=== PATIENT | female | born 1995 | race Caucasian/White ===

== ENCOUNTER 2018-11-05 08:35 | Inpatient (IN) | payer OTHER ==
[2018-11-05 09:05] VITALS: BMI 24.5
--- NOTE | 2018-11-05 10:06 | HP ---
CIWA Score - Admission Criteria [facility] Guidelines: Admission for Medically Managed Detox: Requires at least one of the followin. CIWA greater than 12 2. Seizures within the past 24 hours 3. Delirium tremens within the past 24 hours 4. Hallucinations within the past 24 hours 5. Acute intervention needed for co occurring medical disorder 6. Acute intervention needed for co occurring psychiatric disorder 7. Severe withdrawal that cannot be handled at a lower level of care (continued vomiting, continued diarrhea, abnormal vital signs) requiring intravenous medication and/or fluids 8. Admission ROS S - HPI Chief Complaint: i am here for rehab from xanax,marijuana,fentonyl,mmtp Allergies/Adverse Reactions: Allergies Allergy/AdvReac Type Severity Reaction Status Date / Time No Known Allergies Allergy Verified 11/05/18 08:56 History of Present Illness: this 23 years old female with xanax,marijuana,fentonyl abused,mmtp 90 mgs/day, last medicated today denied seizure,denied syncope hepatitis c,no treatment nicotine dependence 1/2 pack/day,would like to have nicotine patch longest sobriety 1 and half year plan for [facility] treatment - Ebola screening Have you traveled outside of the country in the last 21 days: No (N) Have you had contact with anyone from an Ebola affected area: No Do you have a fever: No - Review of Systems Constitutional: No Symptoms Reported EENT: reports: No Symptoms Reported Respiratory: reports: No Symptoms reported, Other (bronchitis) Cardiac: reports: No Symptoms Reported GI: reports: No Symptoms Reported : reports: No Symptoms Reported Musculoskeletal: reports: No Symptoms Reported Integumentary: reports: No Symptoms Reported Neuro: reports: No Symptoms reported Endocrine: reports: No Symptoms Reported Hematology: reports: No Symptoms Reported Psychiatric: reports: No Sypmtoms Reported, Judgement Intact, Mood/Affect Appropiate, Orientated x3 Other Systems: Reviewed and Negative Patient History - Patient Medical History Hx Anemia: No Hx Asthma: Yes (on albuterol) Hx Chronic Obstructive Pulmonary Disease (COPD): No Hx Cancer: No Hx Cardiac Disorders: No Hx Congestive Heart Failure: No Hx Hypertension: No Hx Hypercholesterolemia: No Hx Pacemaker: No HX Cerebrovascular Accident: No Hx Seizures: No Hx Dementia: No Hx Diabetes: No Hx Gastrointestinal Disorders: No Hx Liver Disease: Yes (hepatitis c,no tretment) Hx Genitourinary Disorders: No Hx Sexually Transmitted Disorders: No Hx Renal Disease (ESRD): No Hx Thyroid Disease: No Hx Human Immunodeficiency Virus (HIV): No (2018 negative) Hx Hepatitis C: Yes (no treatment) Hx Depression: No Hx Suicide Attempt: No Hx Bipolar Disorder: No Hx Schizophrenia: No Other Medical History: no suicidal,no homicidal - Patient Surgical History Past Surgical History: No - PPD History Previous Implant?: Yes Documented Results: Negative w/o proof Implanted On Prior R Admission?: Yes Date: 11/04/18 Results: 0 mm PPD to be Administered?: No - Reproductive History Patient is a Female of Child Bearing Age (11 -55 yrs old): Yes Last Menstrual Period: 10/01/18 Patient : No - Smoking Cessation Smoking history: Current every day smoker Have you smoked in the past 12 months: Yes Aproximately how many cigarettes per day: 10 Hx Chewing Tobacco Use: No Initiated information on smoking cessation: Yes 'Breaking Loose' booklet given: 11/05/18 - Substance & Tx. History Hx Alcohol Use: No Hx Substance Use: Yes Substance Use Type: Heroin, Tranquilizers Hx Substance Use Treatment: Yes (day top in 2017) - Substances abused Alprazolam (Xanax) Substance route: Oral Frequency: 1-3 times last 30 days Amount used: (2) 2mg bars Age of first use: 21 Date of last use: 11/02/18 Heroin Substance route: Inhalation Frequency: Daily Amount used: 3-5 bags Age of first use: 14 Date of last use: 11/04/18 Other Other (specify): fentanyl Substance route: Inhalation Frequency: Daily Amount used: 3-10 bags Age of first use: 22 Date of last use: 11/04/18 Marijuana/Hashish Substance route: Smoking Frequency: Daily Amount used: 5$ Age of first use: 14 Date of last use: 11/04/18 Family Disease History - Family Disease History Family Disease History: Other: Brother (alcohol,dsa), Sister (dsa) Admission Physical Exam [facility] - Vital Signs Vital Signs: Vital Signs - 24 hr 11/05/18 08:56 Temperature 97.5 F L Pulse Rate 74 Respiratory 18 Rate Blood Pressure 130/75 - Physical General Appearance: Yes: Within Normal Limits HEENTM: Yes: Normal ENT Inspection, MIGDALIA, Pharynx Normal Respiratory: Yes: Lungs Clear, Normal Breath Sounds, No Respiratory Distress Neck: Yes: Within Normal Limits, Supple, Trachea in good position Breast: Yes: Breast Exam Deferred Cardiology: Yes: Within Normal Limits, Regular Rhythm, Regular Rate, S1, S2 Abdominal: Yes: Within Normal Limits, Normal Bowel Sounds, Non Tender, Flat, Soft Genitourinary: Yes: Within Normal Limits Back: Yes: Within Normal Limits Musculoskeletal: Yes: Within Normal Limits Extremities: Yes: Within Normal Limits 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, Fully Oriented, Alert, Motor Strength 5/5 Integumentary: Yes: Within Normal Limits Lymphatic: Yes: Within Normal Limits - Diagnostic (1) Heroin abuse Current Visit: Yes Status: Acute (2) Fentanyl use disorder, mild, abuse Current Visit: Yes Status: Acute (3) Benzodiazepine abuse Current Visit: Yes Status: Acute (4) Cannabis dependence Current Visit: Yes Status: Acute (5) Nicotine dependence Current Visit: Yes Status: Acute (6) Asthma Current Visit: Yes Status: Acute (7) Methadone maintenance therapy patient Current Visit: Yes Status: Acute Cleared for Admission [facility] - Detox or Rehab Claeared for Rehab Admission: Yes Inpatient Rehab Admission - Rehab Decision to Admit Inpatient rehab admission?: Yes - Initial Determination Are CD services needed?: Yes Free of communicable disease: Yes Not in need of hospitalization: Yes - Rehab Admission Criteria Previous failed treatment: Yes Poor recovery environment: Yes Comorbidities: Yes Lacks judgement: No Patient is meeting Inpatient Rehab admission criteria:: Yes
[2018-11-05] MEDS ORDERED: MENTHOL/PHENOL 1 EACH UD MM PRN (10:30)
[2018-11-05] MEDS ORDERED: LOPERAMIDE HCL 2 MG CAPSULE PO PRN (10:30)
[2018-11-05] MEDS ORDERED: MAG HYDROX/AL HYDROX/SIMETH 30 ML UNIT-DOSE CUP PO PRN (10:30)
[2018-11-05] MEDS ORDERED: guaiFENesin 200 MG/10 ML 10 ML UNIT-DOSE CUPS PO PRN (10:30)
[2018-11-05] MEDS ORDERED: P-EPHED 60MG/TRIPROLIDI 2.5MG TABLET PO PRN (10:30)
[2018-11-05] MEDS ORDERED: MAGNESIUM CITRATE 300 ML BOTTLE PO PRN (10:30)
[2018-11-05] MEDS ORDERED: MAGNESIUM HYDROX 2400MG/30ML ORAL SUSPENSION 30 ML CUP PO PRN (10:30)
[2018-11-05] MEDS: NICOTINE 21 MG/24 HOURS TOPICAL PATCH TD SCH (14:15)
[2018-11-05] MEDS: THIAMINE HCL 100 MG TABLET (FP) PO SCH (21:53)
[2018-11-05] MEDS: MELATONIN 5 MG TABLETS PO PRN (21:54)
[2018-11-05] MEDS: ALBUTEROL SO4 8 GM HFA INHALER IH PRN (21:56)
[2018-11-06 00:16] LABS: PH,URINE 6.5 (5.0-8.0); URINE APPEARANCE CLOUDY; URINE BILIRUBIN NEGATIVE (NEGATIVE); URINE COLOR YELLOW; URINE GLUCOSE (UA) NEGATIVE (NEGATIVE); URINE KETONE NEGATIVE (NEGATIVE); URINE LEUK ESTERASE NEGATIVE (NEGATIVE); URINE NITRITE NEGATIVE (NEGATIVE); URINE PROTEIN NEGATIVE (NEGATIVE); URINE UROBILINOGEN 0.2 mg/dL (0.2-1.0)
[2018-11-06] MEDS ORDERED: METHADONE HCL 10 MG TABLET PO SCH (06:00)
[2018-11-06] MEDS ORDERED: METHADONE HCL 10 MG TABLET ONE (07:01)
[2018-11-06] MEDS ORDERED: METHADONE HCL 40 MG DISPERSABLE TABLET ONE (07:01)
[2018-11-06] MEDS: METHADONE 80 MG, METHADONE 10 MG PO SCH (07:02)
[2018-11-06] MEDS: NICOTINE 21 MG/24 HOURS TOPICAL PATCH TD SCH (10:10)
[2018-11-06] MEDS: PRENATAL VITAMINS W/ FOLIC ACID TABLET (FP) PO SCH (10:10)
[2018-11-06] MEDS: IBUPROFEN 400 MG TABLET (FP) PO PRN (13:08)
[2018-11-06] MEDS: THIAMINE HCL 100 MG TABLET (FP) PO SCH (21:34)
[2018-11-06] MEDS: MELATONIN 5 MG TABLETS PO PRN (21:34)
[2018-11-06] MEDS: hydrOXYzine PAMOATE 25 MG CAPSULE (FP) PO PRN (21:34)
[2018-11-06] MEDS: ALBUTEROL SO4 8 GM HFA INHALER IH PRN (21:37)
[2018-11-07] MEDS ORDERED: METHADONE HCL 40 MG DISPERSABLE TABLET ONE (03:20)
[2018-11-07] MEDS ORDERED: METHADONE HCL 10 MG TABLET ONE (03:20)
[2018-11-07] MEDS: METHADONE 80 MG, METHADONE 10 MG PO SCH (06:59)
[2018-11-07] MEDS: NICOTINE 21 MG/24 HOURS TOPICAL PATCH TD SCH (10:30)
[2018-11-07] MEDS: PRENATAL VITAMINS W/ FOLIC ACID TABLET (FP) PO SCH (10:30)
--- NOTE | 2018-11-07 11:33 | EKG ---
Test Reason : Blood Pressure : / mmHG Vent. Rate : 056 BPM Atrial Rate : 056 BPM P-R Int : 146 ms QRS Dur : 090 ms QT Int : 504 ms P-R-T Axes : 063 060 054 degrees QTc Int : 486 ms SINUS BRADYCARDIA WITH SINUS ARRHYTHMIA PROLONGED QT ABNORMAL ECG NO PREVIOUS ECGS AVAILABLE Confirmed by NERI GASTELUM, AIDAN ([id number]) on 11/07/2018 11:33:24 AM Referred By: Confirmed By:AIDAN HE MD
[2018-11-07] MEDS: MELATONIN 5 MG TABLETS PO PRN (21:41)
[2018-11-07] MEDS: THIAMINE HCL 100 MG TABLET (FP) PO SCH (21:41)
[2018-11-08] MEDS ORDERED: METHADONE HCL 10 MG TABLET ONE (03:11)
[2018-11-08] MEDS ORDERED: METHADONE HCL 40 MG DISPERSABLE TABLET ONE (03:12)
[2018-11-08] MEDS: METHADONE 80 MG, METHADONE 10 MG PO SCH (06:40)
[2018-11-08] MEDS: PRENATAL VITAMINS W/ FOLIC ACID TABLET (FP) PO SCH (10:25)
[2018-11-08] MEDS: NICOTINE 21 MG/24 HOURS TOPICAL PATCH TD SCH (10:25)
[2018-11-08] MEDS: THIAMINE HCL 100 MG TABLET (FP) PO SCH (21:16)
[2018-11-08] MEDS: ALBUTEROL SO4 8 GM HFA INHALER IH PRN (21:16)
[2018-11-08] MEDS: MELATONIN 5 MG TABLETS PO PRN (21:16)
[2018-11-09] MEDS ORDERED: METHADONE HCL 10 MG TABLET ONE (03:22)
[2018-11-09] MEDS ORDERED: METHADONE HCL 40 MG DISPERSABLE TABLET ONE (03:22)
[2018-11-09] MEDS: METHADONE 80 MG, METHADONE 10 MG PO SCH (06:39)
--- NOTE | 2018-11-09 09:21 | PN ---
[facility] Progress Note Note: Pt is requesting for psych consult stating Hx of Depression and anxiety. reports Dx in half-way and was on medication but does not remember name. Oob ambulating with steady gait. Pt is alert o x 3. denies s/h/i. Vital Signs - 24 hr 11/09/18 11/09/18 11/09/18 00:30 03:30 07:15 Temperature 97.9 F Pulse Rate 63 Respiratory 16 16 16 Rate Blood Pressure 107/68 Laboratory Tests 11/05/18 11/05/18 00:00 09:30 Urine Color Yellow Urine Appearance Cloudy Urine pH 6.5 D Ur Specific [place] 1.024 Urine Protein Negative Urine Glucose (UA) Negative Urine Ketones Negative Urine Blood Negative Urine Nitrite Negative Urine Bilirubin Negative Urine Urobilinogen 0.2 Ur Leukocyte Esterase Negative POC Urine HCG, Qual Negative Psych consult ordered today for pt to follow up.
[2018-11-09] MEDS: PRENATAL VITAMINS W/ FOLIC ACID TABLET (FP) PO SCH (10:08)
[2018-11-09] MEDS: NICOTINE 21 MG/24 HOURS TOPICAL PATCH TD SCH (10:08)
[2018-11-09] MEDS: THIAMINE HCL 100 MG TABLET (FP) PO SCH (21:44)
[2018-11-09] MEDS: MINERAL OIL/PETROLAT/WATER TOPICAL CREAM 113 GM JAR TP SCH (21:44)
[2018-11-09] MEDS: MELATONIN 5 MG TABLETS PO PRN (21:45)
[2018-11-09] MEDS: TOLNAFTATE 1% CREAM 15 GM TUBE TP SCH (21:47)
[2018-11-10] MEDS ORDERED: METHADONE HCL 10 MG TABLET ONE (07:02)
[2018-11-10] MEDS ORDERED: METHADONE HCL 40 MG DISPERSABLE TABLET ONE (07:02)
[2018-11-10] MEDS: METHADONE 80 MG, METHADONE 10 MG PO SCH (07:03)
[2018-11-10] MEDS: IBUPROFEN 400 MG TABLET (FP) PO PRN ×3 (07:03→22:42)
[2018-11-10] MEDS: ALBUTEROL SO4 8 GM HFA INHALER IH PRN (10:10)
[2018-11-10] MEDS: PRENATAL VITAMINS W/ FOLIC ACID TABLET (FP) PO SCH (10:10)
[2018-11-10] MEDS: NICOTINE 21 MG/24 HOURS TOPICAL PATCH TD SCH (10:10)
[2018-11-10] MEDS: MINERAL OIL/PETROLAT/WATER TOPICAL CREAM 113 GM JAR TP SCH ×2 (10:11→21:06)
[2018-11-10] MEDS: TOLNAFTATE 1% CREAM 15 GM TUBE TP SCH ×2 (10:11→21:05)
--- NOTE | 2018-11-10 18:45 | CONSULT ---
[facility] Psychiatric Consult - Data Date of interview: 11/10/18 Admission source: [facility] Identifying data: First visit to [facility] and direct admission to [address] for this 23 y/o female seeking preservation of sobriety via rehabilitation. Patient is single, no dependents, domiciled, unemployed and currently supported by common-law spouse. Substance Abuse History: Confirmed by patient in this interview. Details in current [facility] report as follows : Smoking history: Current every day smoker. Have you smoked in the past 12 months: Yes. Aproximately how many cigarettes per day: 10. Hx Chewing Tobacco Use: No. Initiated information on smoking cessation: Yes. 'Breaking Loose' booklet given: 11/05/18. - Substance & Tx. History. Hx Alcohol Use: No. Hx Substance Use: Yes. Substance Use Type: Heroin, Tranquilizers. Hx Substance Use Treatment: Yes (day top in 2017). - Substances abused. Alprazolam (Xanax). Substance route: Oral. Frequency: 1 -3 times last 30 days. Amount used: (2) 2mg bars. Age of first use: 21. Date of last use: 11/02/18. Heroin. Substance route: Inhalation. Frequency: Daily. Amount used: 3-5 bags. Age of first use: 14. Date of last use: . Other. Other (specify): fentanyl. Substance route: Inhalation. Frequency: Daily. Amount used: 3-10 bags. Age of first use: 22. Date of last use: 11/04/18. Marijuana/Hashish. Substance route: Smoking. Frequency: Daily. Amount used: 5$. Age of first use: 14. Date of last use: 11/04/18 Medical History: Patient endorses good general health. Psychiatric History: Patient denies history of psychiatric hospitalizations, psychiatric OPD care or suicide attempts. Physical/Sexual Abuse/Trauma History: Patient denies. Additional Comment: No toxicology available for review. Mental Status Exam - Mental Status Exam Alert and Oriented to: Time, Place, Person Cognitive Function: Good Patient Appearance: Well Groomed (pierced left nostril, metallic ring inserted) Mood: Hopeful, Euthymic Affect: Appropriate, Normal Range Patient Behavior: Appropriate, Cooperative (friendly) Speech Pattern: Clear, Appropriate Voice Loudness: Normal Thought Process: Intact, Goal Oriented Thought Disorder: Not Present Hallucinations: Denies Suicidal Ideation: Denies Homicidal Ideation: Denies Insight/Judgement: Fair Sleep: Well Appetite: Good Gait/Station: Normal Psychiatric Findings - Problem List ([place] 1, 2,3) (1) Opioid dependence on agonist therapy Current Visit: Yes Status: Chronic Comment: On methadone maintenance (90 mg/ day) at [facility] program. (2) Benzodiazepine abuse Current Visit: Yes Status: Chronic (3) Cannabis dependence Current Visit: Yes Status: Chronic (4) Nicotine dependence Current Visit: Yes Status: Chronic - Initial Treatment Plan Initial Treatment Plan: Psychoeducation. Sleep hygiene. Relapse prevention ( MMTP in place). Support and encouragement. Counseling. Motivational sessions. Groups. AA/NA meetings. Observation.
[2018-11-10] MEDS: MELATONIN 5 MG TABLETS PO PRN (21:03)
[2018-11-10] MEDS: THIAMINE HCL 100 MG TABLET (FP) PO SCH (21:03)
[2018-11-10] MEDS ORDERED: PT OWN MED DRAWER 7, Y5N ONE (21:05)
[2018-11-11] MEDS ORDERED: METHADONE HCL 10 MG TABLET ONE (06:58)
[2018-11-11] MEDS ORDERED: METHADONE HCL 40 MG DISPERSABLE TABLET ONE (06:59)
[2018-11-11] MEDS: METHADONE 80 MG, METHADONE 10 MG PO SCH (06:59)
[2018-11-11] MEDS: IBUPROFEN 400 MG TABLET (FP) PO PRN ×2 (08:20→17:51)
[2018-11-11] MEDS: PRENATAL VITAMINS W/ FOLIC ACID TABLET (FP) PO SCH (10:10)
[2018-11-11] MEDS: NICOTINE 21 MG/24 HOURS TOPICAL PATCH TD SCH (10:10)
[2018-11-11] MEDS: MINERAL OIL/PETROLAT/WATER TOPICAL CREAM 113 GM JAR TP SCH ×2 (10:10→22:12)
[2018-11-11] MEDS: ACETAMINOPHEN 325 MG TABLET (FP) PO PRN (10:11)
[2018-11-11] MEDS: TOLNAFTATE 1% CREAM 15 GM TUBE TP SCH ×2 (10:12→22:12)
[2018-11-11] MEDS: MELATONIN 5 MG TABLETS PO PRN (22:11)
[2018-11-11] MEDS: THIAMINE HCL 100 MG TABLET (FP) PO SCH (22:11)
[2018-11-12] MEDS ORDERED: METHADONE HCL 10 MG TABLET ONE (06:51)
[2018-11-12] MEDS ORDERED: METHADONE HCL 40 MG DISPERSABLE TABLET ONE (06:51)
[2018-11-12] MEDS: IBUPROFEN 400 MG TABLET (FP) PO PRN ×2 (06:52→14:15)
[2018-11-12] MEDS: METHADONE 80 MG, METHADONE 10 MG PO SCH (06:53)
[2018-11-12] MEDS: PRENATAL VITAMINS W/ FOLIC ACID TABLET (FP) PO SCH (09:35)
[2018-11-12] MEDS: MINERAL OIL/PETROLAT/WATER TOPICAL CREAM 113 GM JAR TP SCH ×2 (09:35→21:32)
[2018-11-12] MEDS: NICOTINE 21 MG/24 HOURS TOPICAL PATCH TD SCH (09:35)
[2018-11-12] MEDS: TOLNAFTATE 1% CREAM 15 GM TUBE TP SCH ×2 (09:35→21:33)
[2018-11-12] MEDS: ACETAMINOPHEN 325 MG TABLET (FP) PO PRN (09:36)
[2018-11-12] MEDS: MELATONIN 5 MG TABLETS PO PRN (21:30)
[2018-11-12] MEDS: ALBUTEROL SO4 8 GM HFA INHALER IH PRN (21:30)
[2018-11-12] MEDS: THIAMINE HCL 100 MG TABLET (FP) PO SCH (21:30)
[2018-11-12] MEDS: hydrOXYzine PAMOATE 25 MG CAPSULE (FP) PO PRN (21:32)
[2018-11-13] MEDS ORDERED: METHADONE HCL 10 MG TABLET ONE (03:28)
[2018-11-13] MEDS ORDERED: METHADONE HCL 40 MG DISPERSABLE TABLET ONE (03:28)
[2018-11-13] MEDS: METHADONE 80 MG, METHADONE 10 MG PO SCH (06:34)
[2018-11-13] MEDS: NICOTINE 21 MG/24 HOURS TOPICAL PATCH TD SCH (10:02)
[2018-11-13] MEDS: MINERAL OIL/PETROLAT/WATER TOPICAL CREAM 113 GM JAR TP SCH ×2 (10:02→21:15)
[2018-11-13] MEDS: PRENATAL VITAMINS W/ FOLIC ACID TABLET (FP) PO SCH (10:03)
[2018-11-13] MEDS: TOLNAFTATE 1% CREAM 15 GM TUBE TP SCH ×2 (10:03→21:15)
[2018-11-13] MEDS: IBUPROFEN 400 MG TABLET (FP) PO PRN (10:04)
[2018-11-13] MEDS ORDERED: PT OWN MED DRAWER 7, Y5N ONE (19:08)
[2018-11-13] MEDS: MELATONIN 5 MG TABLETS PO PRN (21:13)
[2018-11-13] MEDS: THIAMINE HCL 100 MG TABLET (FP) PO SCH (21:13)
[2018-11-13] MEDS: hydrOXYzine PAMOATE 25 MG CAPSULE (FP) PO PRN (21:14)
[2018-11-14] MEDS ORDERED: METHADONE HCL 10 MG TABLET ONE (03:17)
[2018-11-14] MEDS ORDERED: METHADONE HCL 40 MG DISPERSABLE TABLET ONE (03:17)
[2018-11-14] MEDS: METHADONE 80 MG, METHADONE 10 MG PO SCH (06:31)
[2018-11-14] MEDS: PRENATAL VITAMINS W/ FOLIC ACID TABLET (FP) PO SCH (10:04)
[2018-11-14] MEDS: NICOTINE 21 MG/24 HOURS TOPICAL PATCH TD SCH (10:04)
[2018-11-14] MEDS: MINERAL OIL/PETROLAT/WATER TOPICAL CREAM 113 GM JAR TP SCH ×2 (10:04→21:52)
[2018-11-14] MEDS: TOLNAFTATE 1% CREAM 15 GM TUBE TP SCH ×2 (10:05→21:52)
[2018-11-14] MEDS: THIAMINE HCL 100 MG TABLET (FP) PO SCH (21:52)
[2018-11-15] MEDS ORDERED: METHADONE HCL 10 MG TABLET ONE (03:32)
[2018-11-15] MEDS ORDERED: METHADONE HCL 40 MG DISPERSABLE TABLET ONE (03:32)
[2018-11-15] MEDS: METHADONE 80 MG, METHADONE 10 MG PO SCH (06:51)
[2018-11-15] MEDS ORDERED: PT OWN MED DRAWER 7, Y5N ONE ×2 (08:20→19:37)
[2018-11-15] MEDS: MINERAL OIL/PETROLAT/WATER TOPICAL CREAM 113 GM JAR TP SCH ×2 (09:38→21:20)
[2018-11-15] MEDS: TOLNAFTATE 1% CREAM 15 GM TUBE TP SCH ×2 (09:39→21:20)
[2018-11-15] MEDS: PRENATAL VITAMINS W/ FOLIC ACID TABLET (FP) PO SCH (09:39)
[2018-11-15] MEDS: NICOTINE 21 MG/24 HOURS TOPICAL PATCH TD SCH (09:39)
[2018-11-15] MEDS: hydrOXYzine PAMOATE 25 MG CAPSULE (FP) PO PRN (21:19)
[2018-11-15] MEDS: THIAMINE HCL 100 MG TABLET (FP) PO SCH (21:19)
[2018-11-15] MEDS: ALBUTEROL SO4 8 GM HFA INHALER IH PRN (21:20)
[2018-11-16] MEDS ORDERED: METHADONE HCL 10 MG TABLET ONE (06:55)
[2018-11-16] MEDS ORDERED: METHADONE HCL 40 MG DISPERSABLE TABLET ONE (06:55)
[2018-11-16] MEDS: METHADONE 80 MG, METHADONE 10 MG PO SCH (06:55)
[2018-11-16] MEDS ORDERED: PT OWN MED DRAWER 7, Y5N ONE (08:49)
[2018-11-16] MEDS: MINERAL OIL/PETROLAT/WATER TOPICAL CREAM 113 GM JAR TP SCH ×2 (09:45→21:36)
[2018-11-16] MEDS: NICOTINE 21 MG/24 HOURS TOPICAL PATCH TD SCH (09:45)
[2018-11-16] MEDS: PRENATAL VITAMINS W/ FOLIC ACID TABLET (FP) PO SCH (09:45)
[2018-11-16] MEDS: TOLNAFTATE 1% CREAM 15 GM TUBE TP SCH ×2 (10:17→21:36)
[2018-11-16] MEDS: hydrOXYzine PAMOATE 25 MG CAPSULE (FP) PO PRN (21:35)
[2018-11-16] MEDS: THIAMINE HCL 100 MG TABLET (FP) PO SCH (21:35)
[2018-11-16] MEDS: MELATONIN 5 MG TABLETS PO PRN (21:35)
[2018-11-16] MEDS: ALBUTEROL SO4 8 GM HFA INHALER IH PRN (21:36)
[2018-11-17] MEDS ORDERED: METHADONE HCL 10 MG TABLET ONE (03:08)
[2018-11-17] MEDS ORDERED: METHADONE HCL 40 MG DISPERSABLE TABLET ONE (03:09)
[2018-11-17] MEDS: METHADONE 80 MG, METHADONE 10 MG PO SCH (06:58)
[2018-11-17] MEDS: PRENATAL VITAMINS W/ FOLIC ACID TABLET (FP) PO SCH (10:12)
[2018-11-17] MEDS: NICOTINE 21 MG/24 HOURS TOPICAL PATCH TD SCH (10:12)
[2018-11-17] MEDS: TOLNAFTATE 1% CREAM 15 GM TUBE TP SCH ×2 (10:13→21:45)
[2018-11-17] MEDS: MINERAL OIL/PETROLAT/WATER TOPICAL CREAM 113 GM JAR TP SCH ×2 (10:13→21:45)
[2018-11-17] MEDS: MELATONIN 5 MG TABLETS PO PRN (21:06)
[2018-11-17] MEDS: hydrOXYzine PAMOATE 25 MG CAPSULE (FP) PO PRN (21:06)
[2018-11-17] MEDS: THIAMINE HCL 100 MG TABLET (FP) PO SCH (21:06)
[2018-11-18] MEDS ORDERED: METHADONE HCL 40 MG DISPERSABLE TABLET ONE (03:23)
[2018-11-18] MEDS ORDERED: METHADONE HCL 10 MG TABLET ONE (03:23)
[2018-11-18] MEDS: METHADONE 80 MG, METHADONE 10 MG PO SCH (06:59)
[2018-11-18] MEDS ORDERED: PT OWN MED DRAWER 7, Y5N ONE ×2 (09:33→23:11)
[2018-11-18] MEDS: PRENATAL VITAMINS W/ FOLIC ACID TABLET (FP) PO SCH (10:07)
[2018-11-18] MEDS: TOLNAFTATE 1% CREAM 15 GM TUBE TP SCH ×2 (10:07→21:02)
[2018-11-18] MEDS: NICOTINE 21 MG/24 HOURS TOPICAL PATCH TD SCH (10:07)
[2018-11-18] MEDS: MINERAL OIL/PETROLAT/WATER TOPICAL CREAM 113 GM JAR TP SCH ×2 (10:08→21:02)
[2018-11-18] MEDS: MELATONIN 5 MG TABLETS PO PRN (21:02)
[2018-11-18] MEDS: THIAMINE HCL 100 MG TABLET (FP) PO SCH (21:02)
[2018-11-18] MEDS: hydrOXYzine PAMOATE 25 MG CAPSULE (FP) PO PRN (21:02)
[2018-11-19] MEDS ORDERED: METHADONE 80 MG, METHADONE 10 MG PO SCH (06:00)
[2018-11-19] MEDS ORDERED: METHADONE HCL 10 MG TABLET ONE (06:03)
[2018-11-19] MEDS ORDERED: METHADONE HCL 40 MG DISPERSABLE TABLET ONE (06:03)
[2018-11-19 06:57] VITALS: BP 104/73; PULSE 73; TEMP 97.7
--- NOTE | 2018-11-19 08:41 | DS ---
[facility] Rehab Discharge Summary - [facility] Rehab Discharge Summary Admission Date: 11/05/18 Discharge Date: 11/19/18 - History Present History: Cannabis dependence, MMTP, Opioid dependence Additional Comments: Pt is a 23 y/o female admitted to rehab for JOVON but on Methadone Maintenance progarm and completed today. Pertinent Past History: Asthma Hep C - Discharge Physical Exam Vital Signs: Vital Signs Temperature 97.7 F 11/19/18 06:53 Pulse Rate 73 11/19/18 06:53 Respiratory Rate 16 11/19/18 06:53 Blood Pressure 104/73 11/19/18 06:53 O2 Sat by Pulse Oximetry (%) Alert o x 3 nad oob ambulating with steady gait Cardiac:s1 s2, rrr Lungs:cta,pipe. Abdomen:soft,nt,nd Extremities/Skin:No edema,full ROM. no cyanosis; skin intact. Pertinent Admission Physical Exam Findings: Laboratory Tests 11/05/18 11/05/18 00:00 09:30 Urine Color Yellow Urine Appearance Cloudy Urine pH 6.5 D Ur Specific [place] 1.024 Urine Protein Negative Urine Glucose (UA) Negative Urine Ketones Negative Urine Blood Negative Urine Nitrite Negative Urine Bilirubin Negative Urine Urobilinogen 0.2 Ur Leukocyte Esterase Negative POC Urine HCG, Qual Negative Unremarkable - Treatment Discharge Condition: Discharge condition good Hospital Course: Rehabilitated safely and responded well - Medication Discharge Medications: Ambulatory Orders NK [No Known Home Medication] 11/05/18 - Medication-Assisted Treatment (MAT) Medication-Assisted Treatment (MAT): No - Discharge Instructions Diet, activity, other medical instructions: Diet:Regular Activity: oob ad caitie Other medical instructions:Follow up with [facility] for CD aftercare. Follow up with primary care at [address] [place] [address] as needed. - Diagnosis (1) Asthma Status: Chronic Qualifiers: Asthma severity: unspecified severity Asthma persistence: unspecified Asthma complication type: unspecified Qualified Code(s): J45.909 - Unspecified asthma, uncomplicated (2) Fentanyl use disorder, mild, abuse Status: Chronic (3) Methadone maintenance therapy patient Status: Chronic (4) Cannabis dependence Status: Chronic (5) Nicotine dependence Status: Chronic Qualifiers: Nicotine product type: cigarettes Substance use status: uncomplicated Qualified Code(s): F17.210 - Nicotine dependence, cigarettes, uncomplicated (6) Benzodiazepine abuse Status: Chronic - Follow-up Referral Minutes to complete discharge: 20 - AMA Did Patient Leave Against Medical Advice: No
[2018-11-19] MEDS: NICOTINE 21 MG/24 HOURS TOPICAL PATCH TD SCH (09:13)
[2018-11-19] MEDS: MINERAL OIL/PETROLAT/WATER TOPICAL CREAM 113 GM JAR TP SCH (09:13)
[2018-11-19] MEDS: PRENATAL VITAMINS W/ FOLIC ACID TABLET (FP) PO SCH (09:13)
== END 2018-11-19 09:35 | disposition home or self-care (01) | DRG 773 ==
LOC: YASAS 08:35 → Y3E 10:26
PROVIDERS: ADMIT Neuromusculoskeletal Medicine & OMM; ATTEND Neuromusculoskeletal Medicine & OMM
PROC: HZ2ZZZZ Detoxification Services for Substance Abuse Treatment (ICD-10-PCS; principal; 2018-11-05)
DX: F11.20 Opioid dependence, uncomplicated (principal); F13.10 Sedative, hypnotic or anxiolytic abuse, uncomplicated; F12.20 Cannabis dependence, uncomplicated; F17.210 Nicotine dependence, cigarettes, uncomplicated; F41.8 Other specified anxiety disorders; F32.9 Major depressive disorder, single episode, unspecified; J45.909 Unspecified asthma, uncomplicated; B18.2 Chronic viral hepatitis C
CPT/HCPCS: 81003; 81025; 93005; 93010

== ENCOUNTER 2020-01-03 08:49 | Inpatient (IN) | payer OTHER ==
--- NOTE | 2020-01-03 09:17 | BHS.RME ---
2018 N Coronavirus Screen - COVID-19 Screening Questions Dx of COVID-19 or had a positive test in the last 4 weeks?: No Contact with known/suspected COVID patient in last 14 days?: No Any of these symptoms or contact with someone who has?: None Traveled domestically/internationally in the last 14 days?: No Screen score: 0 Screen result: Further Evaluation Substance Use & Tx History - Substance Use History Alcohol Substance amount: 1 case beers 16 oz Frequency of use: Daily Substance route: Oral Date of Last Use: 01/03/20 (started age 19) Heroin Substance amount: 1 bundle Frequency of use: Daily Substance route: Inhalation (ex: sniffing or snorting) Date of Last Use: 01/02/20 (started age 16) Xanax Substance amount: 2mg - 1 tab Frequency of use: Daily Substance route: Oral Date of Last Use: 01/03/20 (started age 15) Nicotine Substance amount: 1 pack Frequency of use: Daily Substance route: Smoking Date of Last Use: 01/03/20 (started age 19) - Last Treatment Date of last treatment: 2018 Treatment type: Substance Use Disorder (JOVON) Where was last treatment: Rehab Physical/Psych/Mental Status - Behavior General Behavior: Increased activity (restlessness, agitation) Eye Contact: Normal - Cooperativeness Cooperativeness: Cooperative - Thinking Thought Processes: Tight, Logical, Goal Directed - Physical Health Problems Is patient presently having any pain?: No Does patient presently have any injuries (include location): No Does patient currently have a fever: No Is patient : No COWS - Scale Resting Pulse: 1= ME 81-100 Sweatin= Chills/Flushing Restless Observation: 1= Difficult to Sit Still Pupil Size: 1= Pupils >than Normal Bone or Joint Aches: 1= Mild Discomfort Runny Nose/ Eye Tearin= Nasal Congestion GI Upset > 30mins: 0= None Tremor Observation: 1= Tremor [place], Not Seen Yawning Observation: 1= 1-2x During Session Anxiety or Irritability: 1=Feels Anxious/Irritable Goose Flesh Skin: 3=Piloerection COWS Score: 12 CIWA Nausea/Vomitin Muscle Tremors: 2 Anxiety: 2 Agitation: 2 Paroxysmal Sweats: 1-Minimal Palms Moist Orientation: 1-Uncertain about Date Tacttile Disturbances: 0-None Auditory Disturbances: 0-None Visual Disturbances: 0-None Headache: 2-Mild CIWA-Ar Total Score: 13
[2020-01-03 09:31] VITALS: BMI 20.8
--- OUTSIDE RECORDS SUMMARY | 2020-01-03 09:54 | XMS ---
:1995 Author Organization [facility] Care Team Providers Name Role Phone DARYL IVORY Unavailable Unavailable Dhaval, Phillip Unavailable Dhaval, Phillip Unavailable Dhaval, Phillip Unavailable Dhaval, Phillip Unavailable Dhaval, Phillip Unavailable Dhaval, Phillip Unavailable Dhaval, Phillip Unavailable Dhaval, Phillip Unavailable Dhaval, Phillip Unavailable Dhaval, Phillip Unavailable Dhaval, Phillip Unavailable Dhaval, Phillip Unavailable Dhaval, Phillip Unavailable Dhaval, Phillip Unavailable Dhaval, Phillip Unavailable Dhaval, Phillip Unavailable Dhaval, Phillip Unavailable Dhaval, Phillip Unavailable POC, PHYSICIAN 2 Unavailable Unavailable KASSANDRA GASTELUM Unavailable Unavailable BALDEV GASTELUM Unavailable Unavailable LEHET DO, NELL Unavailable Unavailable Re-disclosure Warning The records that you are about to access may contain information from federally- assisted alcohol or drug abuse programs. If such information is present, then the following federally mandated warning applies: This information has been disclosed to you from records protected by federal confidentiality rules (42 CFR part 2). The federal rules prohibit you from making any further disclosure of this information unless further disclosure is expressly permitted by the written consent of the person to whom it pertains or as otherwise permitted by 42 CFR part 2. A general authorization for the release of medical or other information is NOT sufficient for this purpose. The Federal rules restrict any use of the information to criminally investigate or prosecute any alcohol or drug abuse patient.The records that you are about to access may contain highly sensitive health information, the redisclosure of which is protected by Article 27-F of the [facility] Public Health law. If you continue you may haveaccess to information: Regarding HIV / AIDS; Provided by facilities licensed or operated by the [facility] Office of Mental Health; or Provided by the [facility] Office for People With Developmental Disabilities. If such information is present, then the following [facility] mandated warning applies: This information has been disclosed to you from confidential records which are protected by state law. State law prohibits you from making any further disclosure of this information without the specific written consent of the person to whom it pertains, or as otherwise permitted by law. Any unauthorized further disclosure in violation of state law may result in a fine or alf sentence or both. A general authorization for the release of medical or other information is NOT sufficient authorization for further disclosure. Encounters Encounter Providers Location Date Indications Data Source(s ) Outpatient Attender: Phillip 06/13/2019 [facility] 10:22:14 AM [facility] EDT Patient admitted. Outpatient Attender: DARYL MENDOZA 06/11/2019 Overdose [facility] - DIANELYSAdmitter: DARYL 08:32:00 PM EDT ingestio amanda IVORYConsultant: - 06/11/2019 Janusz DE PAZ 10:58:00 PM EDT MDConsultant: PHYSICIAN POCConsultant: DARYL IVORY Overdose ingestion Patient discharged. [facility] 01/18/2019 eCW2 ( Planned 12:00:00 AM EST [facility]) Outpatient Attender: 2W-SONIA STN 12/05/2018 Request Detox [facility] - Jacinto ALVAREZT 08:22:00 PM EDT [place] DOAdmitter: - 12/05/2018 VAIBHAV LEHET 11:14:00 PM EDT DOConsultant : VAIBHAV LEHET DO Request Detox Patient discharged. Outpatient Attender: FLORIAN Murray-METH 11/21/2018 11:02:00 [id number] MANDO - Lynne TRISTANOSITO MDAdmitter: AM EDT - 11/26/2018 [place] FLORIAN CANNON 02:19:00 PM EDT MDConsultant: FLORIAN CANNON MD [id number] Patient discharged. Medications Medication Brand Start Product Dose Route [facility] Indications Reaction Description Data Name Date Form Instructions Instructions Source(s) Aubra Aubra 01/18/ active 1 tablet eCW2 0.1-20 0.1-20 2018 (Planned MG-MCG MG-MCG 12:00: Parenthoo d 00 AM of [facility]) Insurance Providers Payer name Policy type Policy ID Covered Covered alliance party's Policy P lee / Coverage alliance party ID relationship to Llanos Inf ormation type llanos BENJAMIN [employer] [id number] NON CAP SELF PAY/NO NA Self NA SLIDE [facility] [id number] Self [id number] BENJAMIN [id number] PATIENT IS [id number] MEDICAID INSURED BENJAMIN [id number] PATIENT IS [id number] 0000 MEDICAID INSURED BENJAMIN GOV 3 [id number] PATIENT IS [id number] OR 4 INSURED METHADONE [id number] SP [id number] MAINTENANCE PROGRAM FORMERLY [facility] [id number] SP [id number] NON CAP SELF PAY/NO Self Pay [id number] SLIDE SELF PAY/NO NA Self NA SLIDE Problems, Conditions, and Diagnoses Code Display Name Description Problem Type Effective Data Sour ce(s) Dates [id number] Body mass index Problem 01/18/2019 eCW2 (Korin nned (BMI) 22.0-22.9, 12:00:00 AM Parent [facility]od of adult [facility]) Emergency Room Emergency Room Diagnosis 06/13/2019 The In stitute Visit Follow Up Visit Follow Up 10:22:14 AM For [facility] EDT Health Y92.[address] Diagnosis 06/12/2019 [facility] - or not applicable OR NOT APPLICABLE 11:29:00 AM [place] EDT [place] X58.XXXA Exposure to other EXPOSURE TO OTHER Diagnosis 06/12/2019 [facility] - specified factors, SPECIFIED FACTORS, 11:29:00 AM [place] initial encounter INITIAL ENCOUNTER EDT [place] Y99.9 Unspecified UNSPECIFIED Diagnosis 06/12/2019 [facility] - external cause EXTERNAL CAUSE 11:29:00 AM [facility] status STATUS EDT [place] Y93.9 Activity, ACTIVITY, Diagnosis 06/12/2019 [facility] - unspecified UNSPECIFIED 11:29:00 AM [place] EDT [place] F17.210 Nicotine NICOTINE Diagnosis 06/12/2019 [facility] - dependence, DEPENDENCE, 11:29:00 AM [place] cigarettes, CIGARETTES, EDT [place] uncomplicated UNCOMPLICATED F11.10 Opioid abuse, OPIOID ABUSE, Diagnosis 06/12/2019 [facility] - uncom[facility] [place] [facility]1 Nonrheumatic NONRHEUMATIC Diagnosis 06/12/2019 [facility] - mitral (valve) MITRAL (VALVE) 11:29:00 AM [facility] prolapse PROLAPSE EDT [place] T40.2X1A Poisoning by other POISONING BY OTHER Diagnosis 0 [facility] - opioids, OPIOIDS, 11:29:00 AM [place] accidental ACCIDENTAL EDT [place] (unintentional), (UNINTENTIONAL), initial encounter INITIAL ENCOUNTER R40.4 Transient TRANSIENT Diagnosis 06/12/2019 [facility] - alteration of ALTERATION OF 11:29:00 AM [facility] awareness AWARENESS EDT [place] F11.23 Opioid dependence OPIOID DEPENDENCE Diagnosis 12/10/2018 [facility] - with withdrawal WITH WITHDRAWAL 02:39:00 PM [facility] EDT [place] F11.20 Opioid dependence, OPIOID DEPENDENCE, Diagnosis 9 [facility] - uncomplicated UNCOMPLICATED [facility] [place] Surgeries/Procedures Procedure Description Date Indications Data Source(s) CHLAMYDIA TRACHOMATIS 01/18/2019 eCW2 ( Planned 12:00:00 AM EST [facility] - [facility] [place]) TOBACCO USE CESSATION 01/18/2019 eCW2 ( Planned INTERMEDIATE 3-10 12:00:00 AM EST [facility]) Gonorrhea 01/18/2019 eCW2 (Planned 12:00:00 AM EST [facility] Toma santillan [place]) Results ID Date Data Source [id number] 06/16/2019 10:07:00 PM EDT [facility] These notes were digitally signed by Daryl Ivory DO on Sunday, June 16, 2019 at 22:06 MDSeen: 06/11/2019 8:33:00 PMFirstProviderTime: 06/11/2019 8:33:00 PMDiagnosis 1: OPIOID OVERDOSECondition on discharge: SERIOUSTX: TRIAGE NOTES:Pt dropped off at ED for potential overdose. On arrival pt wheele d intoED unresponsive with snoring respirations. Pt woke prior to VS beingtaken. Pt now awake, alert and cooperative. VS WNL. Pt reports usingheroin at approx 17 00 this evening.Allergies (Reaction): NONELatex/Rubber: NO, Allergy bracelet applied: NoCURRENT MEDICATIONS:None ReportedVITAL SIGNS:Temp: 36.6 C Oral, P ulse: 102 Resp: 10 Weight: 57.15Kg- Stated, BP: 134/87, Pulse ox: 100%Infectious Disease Risk ScreeningEbola Virus Disease (EVD)Symptoms - Known signs of Infection s: No FeverTravel History /Exposure: No TravelNo known or possible exposure---No Risk---NURSING SCHEDULER HISTORY:LMP: 05/12/2019 ([place]) EndHISTORY OF PRESENT ILLNESS: MARIPOSA ATWOOD is a 23 -year-old Femalewho was brought in by friends via private vehicle, who found t he patientto be unresponsive at home. Patient was transferred via wheel chair intothe ED as she was unconscious. Pupils were 2mm and sluggishly reactivebilatera lly. As we moved the patient from the wheel chair to the bed,she woke up and had no recollection of being transferred to the ED.Patient's initial HR was 6, but n ormalized upon becoming conscious.Patient endorses "sniffing dope today", and offers no physicalcomplaints.PMD: NoneREVIEW OF SYSTEMS: Other than the s ymptoms associated with the presentevents, the following is reported with regard to recent health:General: (-) fever. HENT: (-) congestion. Respiratory: (- ) cough.Cardiovascular: (-) chest pain. GI: (-) abdominal pain. : (-)urinary complaints. Musculoskeletal: (-) other aches or pains.Endocrine: (-) gen eralized weakness. Neurological: (-) localizedweakness.PAST MEDICAL HISTORY: (-) DM, (-) HTN, (-) asthma, (-) COPD, (+) heartdisease: mitral valve prolapse, (+) opioid abuseFAMILY HISTORY: (-) known inherited diseaseSOCIAL HISTORY: (+) smoking: daily, (-) EtOH, (+) opiatesMEDICATIONS: Verified by nurseangeliqued by me on this visit : NoneALLERGIES: Verified by nurse, reviewed by me on this visit : NKDALMP: 05/12/2019PHYSICAL EXAMINATION:GENERALIZED APPEARANCE: The patient was initially unresponsive with arespiration rate of 6, but is now awake, alert, and in no respiratorydistress.VITAL SIGNS: Per jeremiah orona's note, reviewed by me : Temp: 36.6 C Oral,Pulse: 102 Resp: 10 Weight: 57.15 Kg-Stated, BP: 134/87, Pulse ox:100%SKIN: Warm, dry; (-) cyanosis.HE AD: Normocephalic. Atraumatic.EYES: (-) conjunctival pallor.ENMT: Mucous membranes moist. Airway: (+) patent.LYMPHATIC/NECK: (-) tenderness, (-) stiffness, (-) lymphadenopathy.CHEST AND RESPIRATORY: (-) rales, (-) rhonchi, (-) wheezes; breathsounds equal bilaterally. Good air entry bilaterally. HEART AND CARDIOVASCULAR: (-) irregularity; (-) murmur, (-) gallop.ABDOMEN AND GI: Soft; (-) tenderness.MUSCULOSKELETAL/EXTREMITIES: (-) joint swelling, (-) deformity.NEURO: Alert, oriented, normal strength. Sensation grossly intact.Moving all extremities normally. Pupils 2mm bilater ally and sluggishlyreactive.PSYCH: (-) apparent hallucinations or delusions. Affect: normal. T he diagnostic results contained in this document reflect theinformation available to the physician at the time of the dionicio entencounter. Final results, when completed, will be found [facility]. DI AGNOSTICS: ==G ROOPA SANTIAGO *Date Back: 06/11/2019 8:41:00 PM Test Result Flag Unit Ref.Kristen =======GLUCOSE, POC 162 H mg/dL 70-105F COMPLETE BLOOD COUNTDIFF *Date Back: 0 8:52:00 PM Test Result Flag Unit Ref.RangeStatus =======WHITE BLOOD CELL CO 7.5 x10E3/uL 4.80-10.80FRED BLOOD CELL COUN 5.00 x10E6/uL 4.20- 5.40FHEMOGLOBIN 14.3 g/dL 12.0-16.0FHEMATOCRIT 42.9 % 37 .0-47.0FMCV 85.8 fL 81.0-99.0FMCH 28.7 pg 27.0-31.0FMCHC 33.4 g/dL 33.0-37.0FRDW 13.3 % 11.5-14.5FPLATELET COUNT 241 x1 0E3/uL 130-400FNEUTROPHIL PERCENT 43.4 % 40.0-74.0FLYMPHOCYTE PERCENT 46.5 % 19.0-48.0FMONOCYTE PERCE NT 6.1 % 3.4-9.0FEOSINOPHIL PERCENT 3.5 % 0.0-7.0FBASOPHIL PERCENT 0.5 % 0.0-1.5F SALICYLA TE *Date Back: 06/11/2019 9 :06:00 PM Test Result Flag Unit Ref.RangeStatus =======SALICYLATE, BLOOD <2.6 L ug/mL 6.0-50.0FSALICYLATE, BLOOD C THERAPEUTI C: <250.1 ug/mLSALICYLATE, BLOOD C TOXIC: >300.0 ug/mL ACETAMINOPH EN *Date Back: 06/11/2019 9:06 :00 PM Test Result Flag Unit Ref.RangeStatus =======ACETAMINOPHEN <15.0 ug/mL 10.0-25.0FACETAMINOPHEN COMME THERAPEUT IC: 10.0-25.0 ug/mLACETAMINOPHEN COMME TOXIC: 4 HRS AFTER INGESTION: >120 ug/mLACETAMINOPHEN COMME 12 HRS AFTER INGESTION: >50 ug/mL COMP METABOLIC PANEL (14) *Date Back: 06/11/2019 9:06 :00 PM Test Result Flag Unit Ref.RangeStatus =======GLUCOSE, SERUM 170 H mg/dL 70-105FBLOOD UREA NITROGEN 11 mg/dL 10- 20FCREATININE, SERUM 1.05 mg/dL 0.70-1.30FCALCIUM, SERUM 9.0 mg/dL 8.8-10.5FA LBUMIN 4.2 g/dL 3.5-5.2FBILIRUBIN TOTAL 0.5 mg/dL 0.3-1.0FTOTAL PROTEIN 6.8 g/dL 6.5- 8.0FASPARTATE AMINOTRAN 13 IU/L 10-30FALANINE AMINOTRANSF 9 L IU/L 10-36FSODIU M SERUM 140 mmol/L 136-145FPOTASSIUM SERUM 3.9 meq/L 3.5-5.1FCHLORIDE SERUM 101 mmol/L 98-805VYU7 24 mmol/L 23-29FALKALINE PHOSPHATAS 52 IU/L 32-104FANION GAP 15 H mmol/L 5-13FGlom Filt Rate, Est 74.5 mL/min 60-137FIf -Gabonese 85.9 mL/min 60- 137F (Lab EndFSB mg/dLPulse Ox: 100% on RA indicating adequate oxyge nation.EKG: NSR at 91 BPM, normal axis and intervals, no ischemic changes, asinterpreted by me.Glazier Supervisor: sinus rhythmPatient informed that the followin g send-out or delayed-result testingwas sent today, with results pending at time of disposition. They wereinformed that they will be contacted with any abnormal results foradditional follow-up, and that results will provided to their PMD onrecord, if applicable.Urine culture ordered, obtained, and sent to lab.EMERG ENCY DEPARTMENT COURSE AND TREATMENT: Patient placed in EmergencyDepartment observation status on 06/11/2019 at 2033 for treatment ofoverdose. Initial exam and a ssessment completed. Decision made toobtain prior medical records. Prior records requested and reviewed inEDIMs. Patient last seen in the ED on 12/05/2018 for op oid dependenceand withdrawal and was discharged.Narcan will not be administered as she has maintained her ownrespirations. End tidal CO2 monitor is ongoing.Orders written. Awaiting diagnostics.Patient re-evaluated multiple times during their evaluation.On first reassessment - Patient is asleep, but rousable to verbalstimuli . Lungs clear to ausculation, without increased work ofbreathing. Vital signs stable.Diagnostic results reviewed and discussed with patient who was given the opportunity to ask questions and verbalized understanding.On second reassessment - Patient continues to sleep comfortably, andremains rousable to verbal stimuli. L ungs clear to ausculation withoutlabored breathing. Vital signs stable.The observation discharge examination, patient's symptoms improved.Patient is awake and a lert. She is able to ambulate with a normal,steady gait. Vital signs remain stable. Based on the patient'sreassessment and response to treatment arrangements made for discharge.The patient remained under the direct care of an emergency physicianuntil 06/11/2019 at 2305.Patient's condition remained stable during Emergen cy Departmentevaluation.Repeat vitals: Temp:36.9 C Oral Pulse:97 Resp:18 BP:102/52 SO2:100on:Room Air .After the evaluation in the Emergency Department, my clinical impressionis << OPIOID OVERDOSE. >>PLAN AND FOLLOW-UP: Patient received written and verbal instructionsregarding this condition. F ollow up to be arranged by patient with PMD(referred to [facility]) in 2-3 days. Patient verbalized understanding ofinstructions to return to the ED immediately for wors ening symptoms orany other concerns. scribed for Daryl Ivory DO signed by Cady reid 06/11/201923:16. scribed for Daryl Ivory DO signed by Yanique Jimenez 06/11/2019 23: 13.The documentation recorded by the scribe accurately reflects the serviceI personally performed and the decisions made by me. Daryl Ivory, 06/16/2019 22:06 Dig itally signed by Daryl Ivory DO on Sunday, June 16, 2019 at 22:06 Name Value Range Interpretation Code Description Data Sangita rce(s) Supporting Document(s ) ID Date Data Source [id number] 06/11/2019 08:41:00 PM EDT [facility] Name Value Range Interpretation Code Description Data Supporting Source(s) Document(s ) GLUCOSE, 162 mg/dL 70-105 Above high normal [facility] - POC [facility] ID Date Data Source [id number] 06/11/2019 09:06:00 PM EDT [facility] Name Value Range Interpretation Description Data Sup porting Code Source(s) Document(s ) GLUCOSE, SERUM 170 70-105 Above high [facility] - mg/dL normal [facility] BLOOD UREA NITROGEN 11 10-20 [facility] - mg/dL [facility] CREATININE, SERUM 1.05 0.70-1. [facility] - mg/dL 30 [facility] CALCIUM, SERUM 9.0 8.8-10. [facility] - mg/dL 5 [facility] ALBUMIN 4.2 3.5-5.2 [facility] - g/dL [facility] BILIRUBIN TOTAL 0.5 0.3-1.0 [facility] - mg/dL [facility] TOTAL PROTEIN 6.8 6.5-8.0 [facility] - g/dL [facility] ASPARTATE 13 IU/L 10-30 [facility] - AMINOTRANSFERASE [facility] ALANINE 9 IU/L 10-36 Below low normal [facility] - AMINOTRANSFERASE [facility] SODIUM SERUM 140 136-145 [facility] - mmol/L [facility] POTASSIUM SERUM 3.9 3.5-5.1 [facility] - meq/L [facility] CHLORIDE SERUM 101 98-107 [facility] - mmol/L [facility] CO2 24 23-29 [facility] - mmol/L [facility] ALKALINE 52 IU/L 32-104 [facility] - PHOSPHATASE [facility] ANION GAP 15 5-13 Above high [facility] - mmol/L normal [facility] Glom Filt Rate, Est 74.5 60-137 [facility] - mL/min [facility] If -Gabonese 85.9 60-137 [facility] - mL/min [facility] ID Date Data Source [id number] 06/11/2019 09:06:00 PM EDT [facility] [place] Name Value Range Interpretation Description Data Sup porting Code Source(s) Document(s ) ACETAMINOPHEN <15.0 10.0-25. [facility] - ug/mL 0 [facility] THERAPEUTIC: 10.0-25.0 ug/mL TOXIC: 4 HRS AFTER INGESTION: >120 ug/mL 12 HRS AFTER INGESTION: >50 ug/mL ID Date Data Source [id number] 06/11/2019 09:06:00 PM EDT [facility] [place] Name Value Range Interpretation Description Data Sup porting Code Source(s) Document(s ) SALICYLAT <2.6 6.0-50.0 Below low normal [facility] - E, BLOOD ug/mL [facility] THERAPEUTIC: <250.1 ug/mL TOXIC: >3 00.0 ug/mL ID Date Data Source [id number] 06/11/2019 08:51:00 PM EDT [facility] Name Value Range Interpretation Description Data Sup porting Code Source(s) Document(s ) WHITE BLOOD 7.5 4.80-10. [facility] - CELL COUNT x10E3/uL 80 [facility] RED BLOOD CELL 5.00 4.20-5.4 [facility] - COUNT x10E6/uL 0 [facility] HEMOGLOBIN 14.3 12.0-16. [facility] - g/dL 0 [facility] HEMATOCRIT 42.9 % 37.0-47. [facility] - 0 [facility] MCV 85.8 fL 81.0-99. [facility] - 0 [facility] MCH 28.7 pg 27.0-31. [facility] - 0 [facility] MCHC 33.4 33.0-37. [facility] - g/dL 0 [facility] RDW 13.3 % 11.5-14. [facility] - 5 [facility] PLATELET COUNT 241 130-400 [facility] - x10E3/uL [facility] NEUTROPHIL 43.4 % 40.0-74. [facility] - PERCENT 0 [facility] LYMPHOCYTE 46.5 % 19.0-48. [facility] - PERCENT 0 [facility] MONOCYTE 6.1 % 3.4-9.0 [facility] - PERCENT [facility] EOSINOPHIL 3.5 % 0.0-7.0 [facility] - PERCENT [facility] BASOPHIL 0.5 % 0.0-1.5 [facility] - PERCENT [facility] ID Date Data Source [id number] 12/14/2018 01:27:36 PM EDT [facility] These notes were digitally signed by Vaibhav Felipe DO on November at 03:14 MDSeen: 12/05/2018 8:27:00 PMFirstProviderTime: 12/05/2018 8:27:00 PMDiagnosis 1: Opioid dependence with withdrawalCondition on discharge: STABLETX: TRIAGE NOTES:pt biba from home - pt was prescri bed 90mg methadone and started todetox from methadone 6 days ago. pt requesting to go to detox.Allergies (Reaction): NONELatex/Rubber: NO, Allergy bracelet a pplied: NoCURRENT MEDICATIONS:None ReportedVITAL SIGNS:Temp: 37.1 C Oral, Pulse: 94 Resp: 19 Weight: 70.31Kg-Actual, BP: 120/71, Pulse ox: 99 %Infectious Disease Risk ScreeningEbola Virus Disease (EVD)Symptoms - Known signs of Infections: No FeverTravel History /Exposure: No TravelNo known or possible exposure---No Risk---NURSING SCHEDULER HISTORY: ([place]) EndHISTORY OF PRESENT ILLNESS: MARIPOSA ATWOOD is a 23 -year -old Femalewho presents to the ED requesting detox. She states that she had beenusing methadone 90 mg and last used 6 days ago. She has been on 90 mg ofmethad one for a little over a year with no decrease in her dose. 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 She does endorse usingopioids while in her previo program. She [place]inic in [place], moved into a detox and rehab facility, and then hadan issue within the facility, and left. The case at the methadone clinicshe and her boyfriend were at was closed and she has been unable to beseen by anyone since. She endorses hot flashes, sweats, nausea ,headache, and rest legs on and off. She has been using Tramadol to gether through with her last dose yesterday. She denies vomiting or alcoholuse.PMD: None currentlyREVIEW OF SYSTEMS: Other than the symptoms associated with the presentevents, the following is reported with regard to recent health:General: ( -) fever. HENT: (-) congestion. Respiratory: (-) cough.Cardiovascular: (-) chest pain. GI: (-) abdominal pain. : (-)urinary complaints. Musculoske letal: (-) other aches or pains.Endocrine: (-) generalized weakness. Neurological: (-) localizedweakness. Psychiatric: (-) other emotional stress .PAST MEDICAL HISTORY: (-) DM, (-) HTN, (-) asthma, (-) COPD, (+) mitralvalve prolapseFAMILY HISTORY: (-) known inherited diseaseSOCIAL HISTORY: (+) sm oking: daily, (-) EtOH, (-) recreational drug useMEDICATIONS: Verified by nurse, reviewed by me on this visit NonereportedALLERGIES: Verified by nurse , reviewed by me on this visit NKDAPHYSICAL EXAMINATION:GENERALIZED APPEARANCE: Patient is alert and awake.VITAL SIGNS: Per nurse's note, reviewed by me Temp: 37.1 C Oral, Pulse:94 Resp: 19 Weight: 70.31 Kg-Actual, BP: 120/71, Pulse ox: 99%SKIN: Warm, dry; (-) cyanosis.HEAD: (-) scalp swelling or te nderness.EYES: (-) conjunctival pallor, (-) scleral icterus.ENMT: Mucous membranes moist.NECK: (-) tenderness, (-) stiffness, (-) lymphadenopathy.CHEST AND RESPIRATORY: (-) rales, (-) rhonchi, (-) wheezes; breathsounds equal bilaterally.HEART AND CARDIOVASCULAR: (-) irregularity; (-) murmur, (-) gallop.ABD OMEN AND GI: Soft; (-) tenderness; (-) palpable organomegaly.EXTREMITIES: (-) deformity, (-) edema.NEURO AND PSYCH: Mental status as above; (-) apparent lopez llucinations ordelusions. publication director: Pupils equal, round, reactive; (-) nystagmus, (-)facial asymmetry; tongue and uvula midline. Strength, DTRs symmetric. --The diagnostic results contained in this document reflect theinformation available to the physician at the time of the patientencounter. Final results, when completed, will be found in [facility] medical [facility]. DI AGNOSTICS:WHITE BLOOD CELL CO Pending G RENY GLUTAMYLTRANS Pending A LCOHOL BLOOD Pending G LUCOSE, SERUM Pending C OLOR Pending A MPHETAMINES Pending COMPLE TE BLOOD COUNTDIFF *Date Back: 2018 10:10:00 PM Test Result Flag Unit Ref.RangeStatus =======WHITE BLOOD CELL CO 5.9 x10E3/uL 4.80-10.80FRED BLOOD CELL C OUN 4.80 x10E6/uL 4.20-5.40FHEMOGLOBIN 13.5 g/dL 12.0-16.0FHEMATOCRIT 40.7 % 37.0-47.0FMCV 84.8 fL 81.0-99.0FMCH 28.1 pg 27.0-31.0FMCHC 33.1 g/dL 33.0-37.0FRDW 13.2 % 11.5-14.5FPLATELET CO UNT 239 x10E3/uL 130-400FNEUTROPHIL PERCENT 67.1 % 40.0-74.0FLYMPHOCYTE PERCENT 24.9 % 19.0- 48.0FMONOCYTE PERCENT 7.4 % 3.4-9.0FEOSINOPHIL PERCENT 0.3 % 0.0-7.0FBASOPHIL PERCENT 0.3 % 0.0-1.5F DRUG SCREEN *Date Back: 12/05 10:21:00 PM Test Result Flag Unit Ref.RangeStatus =======AMPHETAMINES POSITIVE * NEGATIVEFAMPHETAMINES COM MEN CUTOFF LIMIT = 500ng/mLBARBITURATES NEGATIVE NEGATIVEFBARBITURATES COMMEN CUTOFF LIMIT = 200 ng/mLBENZODIAZEPINES NEGATIVE NEGATIVEFBENZODIAZEPINES COM CUTOFF LIMIT = 200 ng/mLCOCAINE METABOLITE POSITIVE * NEGA TIVEFCOCAINE METABOLITE CUTOFF LIMIT = 300 ng/mLOPIATES NEGATIVE NEGATIVEFOPIATES COMMENTS CUTOFF LAM IT = 300 ng/mLPHENCYCLIDINE NEGATIVE NEGATIVEFPHENCYCLIDINE COMME CUTOFF LIMIT = 25 ng/mLCANNABINOIDS POSITIVE * NEGATIVEFCANNABINOIDS COMMEN CUTOFF LIMIT = 50 ng/mLPOSITIVE DRUG INTER *FPOSITIVE DRUG INTER PRESUMPTIVE POSITIVE. CONFIRMATI ON TO FOLLOW. URINAL YSIS *Date Back: 2018 10:26:00 PM Test Result Flag Unit Ref.RangeStatus =======COLOR YELLOW STRAW-YELFAPPEARANCE CLEAR CLEARFGLUCOSE QUALITATIVE NEGATIVE NEGATIVEFBILIRUBIN URINE NEGATIVE NEGATIVEFKETONES URINE NEGATIVE NEGATIVEFSPECIFIC GRAVITY UR 1.025 H 1.016-1.022FBLOOD URINE NEGATIVE NEGATIVEFPH URINE 6.0 5.0-8.0FPROTEIN URINE TRACE * NEGATIVEFUROBILINOGEN URINE 0.2 eu/dL "<1.0"FNITRITE URINE NEGATIVE NEGATIVEFLEUKOCYTE ESTERASE NEGATIVE NEGATIVEF GGT *Date Back: 10/9 /2019 10:28:00 PM Test Result Flag Unit Ref.RangeStatus =======GAMMA GLUTAMYLTRANS 8 IU/L 7-32F ALCOHOL *Date Back: 10/9/201 9 10:28:00 PM Test Result Flag Unit Ref.RangeStatus =======ALCOHOL BLOOD UNDETECTED mg/dL "<20"F COMP METABOLIC PANEL (14) *Date Back: 12/05 10:28:00 PM Test Result Flag Unit Ref.RangeStatus =======GLUCOSE, SERUM 105 mg/dL 70-105FBLOOD UREA NITROGEN 9 L mg/dL 10-20FCREATININE, SERUM 0.86 mg/dL 0.70-1.30FCALCIUM, SERUM 9.8 mg/dL 8.8- 10.5FALBUMIN 4.2 g/dL 3.5-5.2FBILIRUBIN TOTAL 0.9 mg/dL 0.3-1.0FTOTAL PROTEIN 7.1 g/dL 6.5-8.0FASPARTATE AMINOTRAN 15 IU/L 10-30FALANINE AMINOTRANSF 9 L IU/L 10- 36FSODIUM SERUM 142 mmol/L 136-145FPOTASSIUM SERUM 4.0 meq /L 3.5-5.1FCHLORIDE SERUM 103 mmol/L 98-216XAO5 25 mmol/L 23-29FALKALINE PHOSPHA TAS 63 IU/L 32-104FANION GAP 14 H mmol/L 5-13FGlom Filt Rate, Est 94.9 mL/min 60-137FIf -Gabonese 109.3 mL/min 60- 137F (Lab ) EndPulse ox is 99% on RA, indicating adequate oxygenation.EMERGENCY DEPARTMENT COURSE AND TREATMENT: Initial assessment and examcompleted. Decision made to obtain prior medical records. Prior recordsreviewed in EDIMS. Patient last seen in the ED on 06/12/2017 for mi tralvalve prolapse and was discharged.Orders written. Awaiting diagnostics.Diagnostics reviewed, and results discussed with the patient, who wasgiven the opportunity to ask questions.Patient medically appropriate for detox assessment.Patient completed intake interview with detox program, and at thi s timedoes not meet criteria for inpatient acceptance. She was offeredinformational resources and encouraged to follow up with outpatientdetox program a nd with PMD, as well as to return to the ER for anyworsening or concerning symptoms. Physician felt that her acutewithdrawal period has already passe d.On re-assessment - Patient remains alert, awake, and oriented. She is inno acute distress. Patient states that she has been having seizures,although there is no evidence to support this on the lab work orphysical exam. Patient has had no seizure activity or withdrawalsymptoms while in the ED.Deisi triplett's condition remained stable during Emergency Departmentevaluation.Repeat VS - Time:23:12 Temp:36.8 C Oral Pulse:85 Resp:18 BP:130/84SO2:96 on:Rosalinda m Air .After the evaluation in the Emergency Department, my clinical impressionis << Opioid dependence with withdrawal. >>PLAN AND FOLLOW-UP: The re sults and limitations of this evaluationincluding the need for possible further care, treatment, and testingwere discussed. Follow-up with [facility] as instru cted in 2 days, or ifunable to do so return to the emergency department. These instructionswere given to the patient, who was given the opportunity t o askquestions and verbalized understanding. scribed for Vaibhav Felipe DO signed by Jose Brice 12/05/201823:17.The documentation recorded by the scribe accurately reflects the serviceI personally performed and the decisions made by me. Vaibhav Felipe DO12/06/2018 03:14 Dig signed by Vaibhav Felipe DO on November at03:14 Name Value Range Interpretation Code Description Data Sangita rce(s) Supporting Document(s ) ID Date Data Source [id number] 12/10/2018 01:06:00 PM EDT [facility] Name Value Range Interpretation Description Data Sup porting Code Source(s) Document(s ) Cocaine (Metab.) Positive * [facility] Benzoylecgonine [id number] Cutoff= [facility] - GC/MS Conf ng/mL 150 [facility] All above tests performed at: [facility] [address] [place] [address] ID Date Data Source [id number] 12/10/2018 01:06:00 PM EDT [facility] Name Value Range Interpretation Description Data Sup porting Code Source(s) Document(s ) Cannabinoid Positive * [facility] Carboxy THC 38 ng/mL Cutoff=1 [facility] - GC/MS Conf 0 [facility] All above [facility] [address] [place] [address] ID Date Data Source [id number] 12/10/2018 01:06:00 PM EDT [facility] Name Value Range Interpretation Description Data Sup porting Code Source(s) Document(s ) Amphetamines Negative HV - [facility] Reference Intervals [id number] Amphetamine test includes Amphetamine and Methamphetamine . All above tests performed [facility]: [facility] [address] [place] [address] ID Date Data Source [id number] 12/05/2018 10:56:00 PM EDT [facility] Name Value Range Interpretation Description Data Sup porting Code Source(s) Document(s ) EPITHELIAL MODERATE [facility] - CELLS /hpf [place] (NON-RENAL) [facility] U AMORPHOUS FEW [facility] - SEDIMENT [facility] ID Date Data Source [id number] 12/05/2018 10:25:00 PM EDT [facility] Name Value Range Interpretation Description Data Sup porting Code Source(s) Document(s ) COLOR YELLOW STRAW-YEL [facility] - [facility] APPEARANCE CLEAR CLEAR HV - [facility] GLUCOSE NEGATIVE NEGATIVE [facility] - QUALITATIVE U [place] BILIRUBIN NEGATIVE NEGATIVE [facility] - URINE [facility] KETONES URINE NEGATIVE NEGATIVE [facility] - [facility] SPECIFIC 1.025 1.016-1.02 Above high [facility] - GRAVITY URINE 2 normal [facility] BLOOD URINE NEGATIVE NEGATIVE HV - [facility] PH URINE 6.0 5.0-8.0 [facility] - [facility] PROTEIN URINE TRACE NEGATIVE * [facility] - [facility] UROBILINOGEN 0.2 eu/dL "<1.0" [facility] - URINE [facility] NITRITE URINE NEGATIVE NEGATIVE [facility] - [facility] LEUKOCYTE NEGATIVE NEGATIVE [facility] - ESTERASE URINE [place] [facility] ID Date Data Source [id number] 12/05/2018 10:19:00 PM EDT [facility] Name Value Range Interpretation Description Data Sup porting Code Source(s) Document(s ) AMPHETAMINES POSITIVE NEGATIVE * [facility] - [facility] CUTOFF LIMIT = 500ng/mL BARBITURATES NEGATIVE NEGATIVE [facility] - [place] C amp[facility] CUTOFF LIMIT = 200 ng/mL BENZODIAZEPINES NEGATIVE NEGATIVE [facility] - [facility] [place] CUTOFF LIMIT = 200 ng/mL COCAINE METABOLITE POSITIVE NEGATIVE * [facility] - [facility] CUTOFF LIMIT = 300 ng/mL OPIATES NEGATIVE NEGATIVE [facility] - [facility] us CUTOFF LIMIT = 300 ng/mL PHENCYCLIDINE NEGATIVE NEGATIVE [facility] - [facility] CUTOFF LIMIT = 25 ng/mL CANNABINOIDS POSITIVE NEGATIVE * [facility] - [place] [facility] CUTOFF LIMIT = 50 ng/mL POSITIVE DRUG INTERP COMMENT * H [facility] - [facility] PRESUMPTIVE POSITIVE. CONFIRMATION TO [place] RASHID. ID Date Data Source [id number] 12/05/2018 10:26:00 PM EDT [facility] Name Value Range Interpretation Description Data Sup porting Code Source(s) Document(s ) GLUCOSE, SERUM 105 70-105 [facility] - mg/dL [facility] BLOOD UREA NITROGEN 9 mg/dL 10-20 Below low normal [facility] CREATININE, SERUM 0.86 0.70-1. [facility] - mg/dL 30 [facility] CALCIUM, SERUM 9.8 8.8-10. [facility] - mg/dL 5 [facility] ALBUMIN 4.2 3.5-5.2 [facility] - g/dL [facility] BILIRUBIN TOTAL 0.9 0.3-1.0 [facility] - mg/dL [facility] TOTAL PROTEIN 7.1 6.5-8.0 [facility] - g/dL [facility] ASPARTATE 15 IU/L 10-30 [facility] - AMINOTRANSFERASE [facility] ALANINE 9 IU/L 10-36 Below low normal [facility] - AMINOTRANSFERASE [facility] SODIUM SERUM 142 136-145 [facility] - mmol/L [facility] POTASSIUM SERUM 4.0 3.5-5.1 [facility] - meq/L [facility] CHLORIDE SERUM 103 98-107 [facility] - mmol/L [facility] CO2 25 23-29 [facility] - mmol/L [facility] ALKALINE 63 IU/L 32-104 [facility] - PHOSPHATASE [facility] ANION GAP 14 5-13 Above high [facility] - mmol/L normal [facility] Glom Filt Rate, Est 94.9 60-137 [facility] - mL/min [facility] If -Gabonese 109.3 60-137 [facility] - mL/min [facility] ID Date Data Source [id number] 12/05/2018 10:26:00 PM EDT [facility] - [facility] Name Value Range Interpretation Description Data Sup porting Code Source(s) Document(s ) GAMMA 8 IU/L 7-32 [facility] - GLUTAMYLTRANSFERASE [facility] ID Date Data Source [id number] 12/05/2018 10:26:00 PM EDT [facility] Name Value Range Interpretation Description Data Sup porting Code Source(s) Document(s ) ALCOHOL UNDETECTED "<20" [facility] - BLOOD mg/dL [facility] ID Date Data Source [id number] 12/05/2018 10:09:00 PM EDT [facility] Name Value Range Interpretation Description Data Sup porting Code Source(s) Document(s ) WHITE BLOOD 5.9 4.80-10. [facility] - CELL COUNT x10E3/uL 80 [facility] RED BLOOD CELL 4.80 4.20-5.4 [facility] - COUNT x10E6/uL 0 [facility] HEMOGLOBIN 13.5 12.0-16. [facility] - g/dL 0 [facility] HEMATOCRIT 40.7 % 37.0-47. [facility] - 0 [facility] MCV 84.8 fL 81.0-99. [facility] - 0 [facility] MCH 28.1 pg 27.0-31. [facility] - 0 [facility] MCHC 33.1 33.0-37. [facility] - g/dL 0 [facility] RDW 13.2 % 11.5-14. [facility] - 5 [facility] PLATELET COUNT 239 130-400 [facility] - x10E3/uL [facility] NEUTROPHIL 67.1 % 40.0-74. [facility] - PERCENT 0 [facility] LYMPHOCYTE 24.9 % 19.0-48. [facility] - PERCENT 0 [facility] MONOCYTE 7.4 % 3.4-9.0 [facility] - PERCENT [facility] EOSINOPHIL 0.3 % 0.0-7.0 [facility] - PERCENT [facility] BASOPHIL 0.3 % 0.0-1.5 [facility] - PERCENT [facility] Procedure Vital Signs ID Date Data Source UNK Name Value Range Interpretation Code Description Data Source(s) Diastolic blood 60 mm[Hg] 60 mm[Hg] eCW2 (Korin nned pressure [facility] [place] Jacqueline tamia) Systolic blood 118 mm[Hg] 118 mm[Hg] eCW2 (Plan eduardo pressure [facility] [place] Jacqueline tamia) Body mass index 22.46 kg/m2 22.46 kg/m2 eCW2 (P lanned (BMI) [Ratio] [facility] Josafat cantrell) Body weight 135 [lb_av] 135 [lb_av] eCW2 (Plann ed Measured [facility] Josafat cantrell) Body height 65 [in_us] 65 [in_us] eCW2 ([facility] Josafat cantrell) Patient Treatment Plan of Care Planned Activity Planned Date Details Description Data Source (s) Niharikabra 0.1-20 MG-MCG 01/18/2019 12:00:00 e CW2 ([facility] EST [facility] Josafat Gardner kashmir)
--- NOTE | 2020-01-03 10:00 | HP ---
COWS - Scale Resting Pulse: 1= [place] 81-100 Sweatin= Chills/Flushing Restless Observation: 1= Difficult to Sit Still Pupil Size: 1= Pupils >than Normal Bone or Joint Aches: 1= Mild Discomfort Runny Nose/ Eye Tearin= Nasal Congestion GI Upset > 30mins: 0= None Tremor Observation: 1= Tremor [place], Not Seen Yawning Observation: 1= 1-2x During Session Anxiety or Irritability: 1=Feels Anxious/Irritable Goose Flesh Skin: 3=Piloerection COWS Score: 12 CIWA Score Nausea/Vomitin Muscle Tremors: 2 Anxiety: 2 Agitation: 2 Paroxysmal Sweats: 1-Minimal Palms Moist Orientation: 1-Uncertain about Date Tacttile Disturbances: 0-None Auditory Disturbances: 0-None Visual Disturbances: 0-None Headache: 2-Mild CIWA-Ar Total Score: 13 - Admission Criteria OASAS Guidelines: Admission for Medically Managed Detox: Requires at least one of the followin. CIWA greater than 12 2. Seizures within the past 24 hours 3. Delirium tremens within the past 24 hours 4. Hallucinations within the past 24 hours 5. Acute intervention needed for co occurring medical disorder 6. Acute intervention needed for co occurring psychiatric disorder 7. Severe withdrawal that cannot be handled at a lower level of care (continued vomiting, continued diarrhea, abnormal vital signs) requiring intravenous medication and/or fluids 8. Admitting History and Physical - Past Medical History ...LMP: 12/27/19 ...: No - Smoking History Smoking history: Current every day smoker Have you smoked in the past 12 months: Yes Aproximately how many cigarettes per day: 10 - Alcohol/Substance Use Hx Alcohol Use: No Admission ROS [facility] Chief Complaint: " I want to stop using all these drugs. I'm tired of using." Allergies/Adverse Reactions: Allergies Allergy/AdvReac Type Severity Reaction Status Date / Time No Known Allergies Allergy Verified 01/03/20 09:28 History of Present Illness: 24 year old female with history of alcohol dependence with withdrawal, opiate dependence with withdrawal, sedative dependence and nicotine dependence seeking detox services. She is not new to treatment and was here in 2019 for rehab but at the time she was on [facility]. She left OTP and was sober for 6 months but relapsed in 08/2019. - Substance Use History Alcohol Substance amount: 1 case beers 16 oz Frequency of use: Daily Substance route: Oral Date of Last Use: 01/03/20 (started age 19) Patient stated she had a withdrawal seizure in 2014 and was drug induced but none recently. She admits to having to have an eye invoicing specialist daily to stave off withdrawals Heroin Substance amount: 1 bundle Frequency of use: Daily Substance route: Inhalation (ex: sniffing or snorting) Date of Last Use: 01/02/20 (started age 16) Patient did overdose twice, last one in 2018, and now carries narcan Xanax Substance amount: 2mg - 1 tab Frequency of use: Daily Substance route: Oral Date of Last Use: 01/03/20 (started age 15) Nicotine Substance amount: 1 pack Frequency of use: Daily Substance route: Smoking Date of Last Use: 01/03/20 (started age 19) Cocaine: Using smoking crack $100 daily, started age age 23 and last used today PMH: HCV untreated, Seizure in 2014 Psurg: None Psych: None Lives in [place] aunt but unstable housing. Denies any legal issues. Urine Tox: + SAMMI, FEN, MOP Patient meets criteria for detox as she has multiple failures and relapsed after leaving OTP. She is also at high risk with her use of sedatives and alcohol together with the opioids. Exam Limitations: No Limitations - Ebola screening Have you traveled outside of the country in the last 21 days: No Have you had contact with anyone from an Ebola affected area: No Have you been sick,other than usual withdrawal symptoms: No Do you have a fever: No - Review of Systems Constitutional: Diaphoresis, Unintentional Wgt. Loss EENT: reports: No Symptoms Reported Respiratory: reports: No Symptoms reported Cardiac: reports: No Symptoms Reported GI: reports: No Symptoms Reported : reports: No Symptoms Reported Musculoskeletal: reports: No Symptoms Reported Integumentary: reports: No Symptoms Reported Neuro: reports: Tremors Endocrine: reports: No Symptoms Reported Hematology: reports: No Symptoms Reported Psychiatric: reports: Judgement Intact, Orientated x3, Agitated, Anxious Other Systems: Reviewed and Negative Patient History - Patient Medical History Hx Anemia: No Hx Asthma: Yes Hx Chronic Obstructive Pulmonary Disease (COPD): No Hx Cancer: No Hx Cardiac Disorders: No Hx Congestive Heart Failure: No Hx Hypertension: No Hx Hypercholesterolemia: No Hx Pacemaker: No HX Cerebrovascular Accident: No Hx Seizures: Yes (in 2014) Hx Dementia: No Hx Diabetes: No Hx Gastrointestinal Disorders: No Hx Liver Disease: Yes (hepatitis c,no tretment) Hx Genitourinary Disorders: No Hx Sexually Transmitted Disorders: No Hx Renal Disease (ESRD): No Hx Thyroid Disease: No Hx Human Immunodeficiency Virus (HIV): No (2018 negative) Hx Hepatitis C: Yes (no treatment) Hx Depression: Yes Hx Suicide Attempt: No Hx Bipolar Disorder: No Hx Schizophrenia: No - Patient Surgical History Past Surgical History: No - PPD History Previous Implant?: Yes Documented Results: Negative w/o proof Implanted On Prior [facility] Admission?: Yes Date: 11/04/18 Results: 0 mm PPD to be Administered?: Yes - Reproductive History Last Menstrual Period: 12/27/19 Patient : No - Smoking Cessation Smoking history: Current every day smoker Have you smoked in the past 12 months: Yes Aproximately how many cigarettes per day: 10 Hx Chewing Tobacco Use: No Initiated information on smoking cessation: Yes 'Breaking Loose' booklet given: 01/03/20 - Substances abused Alcohol Substance route: Oral Frequency: Daily Amount used: 1 case 12 pack beer Age of first use: 19 Date of last use: 01/03/20 Heroin Other (specify): fentanyl Substance route: Inhalation Frequency: Daily Amount used: 1 bundle Age of first use: 16 Date of last use: 01/02/20 Crack Substance route: Smoking Frequency: Daily Amount used: $100 Age of first use: 23 Date of last use: 01/03/20 Alprazolam (Xanax) Substance route: Oral Frequency: Daily Amount used: 2mg - 1 tab Age of first use: 15 Date of last use: 01/03/20 Admission Physical Exam [facility] - Vital Signs Vital Signs: Vital Signs - 24 hr 01/03/20 09:29 Temperature 97.2 F L Pulse Rate 85 Respiratory 18 Rate Blood Pressure 115/75 Screened but not Admitted - Documentation of Visit Screened but not Admitted: No Breathalyzer - Breathalyzer Breathalyzer: 0 Vital Signs - Vital Signs Vital signs refused: No Temperature: 97.2 F Pulse Rate: 85 Respiratory Rate: 18 Blood Pressure: 115/75 BP Location: Right Arm Blood Pressure position: Sitting - Height Height: 5 ft 6 in - Weight Weight: 129 lb Weight measurement method: Standing scale - BMI Body Mass Index (BMI): 20.8 - Bowel Function Bowel Movement: No Urine Drug Screen - Test Device Lot number: [id number] Expiration date: 06/04/21 - Control Is test valid?: Yes - Results Drug screen NEGATIVE: No Urine drug screen results: SAMMI-Cocaine, FEN-Fentanyl, MOP-Opiates Inpatient Rehab Admission - Rehab Decision to Admit Inpatient rehab admission?: No
[2020-01-03] MEDS ORDERED: MAGNESIUM CITRATE 300 ML BOTTLE PO PRN (10:08)
[2020-01-03] MEDS ORDERED: NICOTINE POLACRILEX 2 MG GUM BUC PRN (10:08)
[2020-01-03] MEDS ORDERED: ACETAMINOPHEN 325 MG TABLET (FP) PO PRN ×2 (10:08)
[2020-01-03] MEDS ORDERED: chlordiazePOXIDE HCL 25 MG CAPSULE PO PRN (10:08)
[2020-01-03] MEDS ORDERED: METHOCARBAMOL 500 MG TABLET PO PRN (10:08)
[2020-01-03] MEDS ORDERED: MENTHOL/PHENOL 1 EACH UD MM PRN (10:08)
[2020-01-03] MEDS ORDERED: IBUPROFEN 400 MG TABLET (FP) PO PRN (10:08)
[2020-01-03] MEDS ORDERED: BISMUTH SUBSALICYLATE 524 MG/30 ML UD PO PRN (10:08)
[2020-01-03] MEDS ORDERED: MAG HYDROX/AL HYDROX/SIMETH 30 ML UNIT-DOSE CUP PO PRN (10:08)
[2020-01-03] MEDS ORDERED: cloNIDine HCL 0.1 MG TABLET PO PRN (10:08)
[2020-01-03] MEDS ORDERED: ONDANSETRON *ODT* 4 MG TABLET SL PRN (10:08)
[2020-01-03] MEDS ORDERED: MAGNESIUM HYDROX 2400MG/30ML ORAL SUSPENSION 30 ML CUP PO PRN (10:08)
[2020-01-03] MEDS ORDERED: hydrOXYzine PAMOATE 25 MG CAPSULE (FP) PO PRN (10:13)
[2020-01-03] MEDS ORDERED: METHADONE HCL 10 MG TABLET (FOR DETOX USE ONLY) PO ONE (10:30)
[2020-01-03] MEDS ORDERED: ALBUTEROL SO4 HFA INHALER IH PRN (10:41)
[2020-01-03] MEDS: chlordiazePOXIDE HCL 25 MG CAPSULE PO SCH ×3 (11:32→22:41)
[2020-01-03] MEDS: PRENATAL VITAMINS W/ FOLIC ACID TABLET (FP) PO SCH (11:34)
[2020-01-03] MEDS: NICOTINE 7 MG/24 HOURS TOPICAL PATCH TD SCH (11:34)
[2020-01-03] MEDS ORDERED: hydrOXYzine PAMOATE 25 MG CAPSULE (FP) PO SCH (14:00)
[2020-01-03 14:34] LABS: HEMATOCRIT 40.3 % (32.4-45.2); HEMOGLOBIN 13.9 GM/dL (10.7-15.3); MCH 29.2 pg (25.7-33.7); MCHC 34.3 g/dl (32.0-36.0); MEAN CELL VOLUME 85.1 fl (80-96); MEAN PLT VOLUME 8.7 fl (7.5-11.1); PLATELET COUNT 246 K/MM3 (134-434); RBC 4.74 M/mm3 (3.60-5.2); RDW 13.4 % (11.6-15.6); WHITE BLOOD COUNT 5.3 K/mm3 (4.0-10.0)
[2020-01-03 14:38] LABS: POTASSIUM 3.8 mmol/L (3.5-5.1)
[2020-01-03 14:41] LABS: CALCIUM 9.5 mg/dL (8.5-10.1)
[2020-01-03 14:42] LABS: ALBUMIN 3.7 g/dl (3.4-5.0); BLOOD UREA NITROGEN 6.2 mg/dL (7-18)
[2020-01-03 14:45] LABS: CREATININE 0.7 mg/dL (0.55-1.3)
[2020-01-03 14:47] LABS: BILIRUBIN,TOTAL 0.7 mg/dL (0.2-1); TOT PROT 6.8 g/dl (6.4-8.2)
[2020-01-03] MEDS: THIAMINE HCL 100 MG TABLET (FP) PO SCH (22:41)
[2020-01-03] MEDS: MELATONIN 5 MG TABLETS PO SCH (22:41)
[2020-01-04] MEDS: chlordiazePOXIDE HCL 25 MG CAPSULE PO SCH ×4 (06:08→22:08)
[2020-01-04] MEDS ORDERED: METHADONE HCL 5 MG TABLET (FOR DETOX USE ONLY) ONE (09:20)
[2020-01-04] MEDS ORDERED: METHADONE HCL 10 MG TABLET (FOR DETOX USE ONLY) ONE (09:20)
[2020-01-04] MEDS ORDERED: METHADONE (DETOX) 20 MG, METHADONE (DETOX) 5 MG PO ONE (10:00)
[2020-01-04] MEDS: PRENATAL VITAMINS W/ FOLIC ACID TABLET (FP) PO SCH (10:27)
[2020-01-04] MEDS: NICOTINE 7 MG/24 HOURS TOPICAL PATCH TD SCH (10:28)
--- NOTE | 2020-01-04 10:46 | PN ---
[facility] CIWA - CIWA Score Nausea/Vomitin-No Nausea/No Vomiting Muscle Tremors: 3 Anxiety: 4-Mod. Anxious/Guarded Agitation: 2 Paroxysmal Sweats: 2 Orientation: 0-Oriented Tacttile Disturbances: 0-None Auditory Disturbances: 0-None Visual Disturbances: 0-None Headache: 0-None Present CIWA-Ar Total Score: 11 S COWS - Scale Resting Pulse: 0= [place] 80 or Below Sweatin= Chills/Flushing Restless Observation: 0= Sits Still Pupil Size: 0= Normal to Room Light Bone or Joint Aches: 2= Severe Diffuse Aches Runny Nose/ Eye Tearin= None GI Upset > 30mins: 0= None Tremor Observation of Outstretched Hands: 2= Slight Tremor Visible Yawning Observation: 0= None Anxiety or Irritability: 2=Irritable/Anxious Goose Flesh Skin: 0=Smooth Skin COWS Score: 7 [facility] Progress Note (SOAP) Subjective: Complaints of chills, sweats, anxiety, tremors, body aches, and irritability. Objective: 01/04/20 10:44 Vital Signs 01/04/20 01/04/20 06:00 08:41 Temperature 97.1 F L 97.2 F L Pulse Rate 57 L 68 Respiratory 16 18 Rate Blood Pressure 99/65 120/56 L O2 Sat by Pulse 96 98 Oximetry (%) Laboratory Last Values WBC 5.3 K/mm3 (4.0-10.0) 01/03/20 09:45 RBC 4.74 M/mm3 (3.60-5.2) 01/03/20 09:45 Hgb 13.9 GM/dL (10.7-15.3) 01/03/20 09:45 Hct 40.3 % (32.4-45.2) 01/03/20 09:45 MCV 85.1 fl (80-96) 01/03/20 09:45 MCH 29.2 pg (25.7-33.7) 01/03/20 09:45 MCHC 34.3 g/dl (32.0-36.0) 01/03/20 09:45 RDW 13.4 % (11.6-15.6) 01/03/20 09:45 Plt Count 246 K/MM3 (134-434) 01/03/20 09:45 MPV 8.7 fl (7.5-11.1) 01/03/20 09:45 Sodium 138 mmol/L (136-145) 01/03/20 09:45 Potassium 3.8 mmol/L (3.5-5.1) 01/03/20 09:45 Chloride 102 mmol/L (98-107) 01/03/20 09:45 Carbon Dioxide 31 mmol/L (21-32) 01/03/20 09:45 Anion Gap 5 MMOL/L (8-16) L 01/03/20 09:45 BUN 6.2 mg/dL (7-18) L 01/03/20 09:45 Creatinine 0.7 mg/dL (0.55-1.3) 01/03/20 09:45 Est GFR (CKD-EPI)AfAm 139.57 01/03/20 09:45 Est GFR (CKD-EPI)NonAf 120.42 01/03/20 09:45 Random Glucose 89 mg/dL (74-106) 01/03/20 09:45 Calcium 9.5 mg/dL (8.5-10.1) 01/03/20 09:45 Total Bilirubin 0.7 mg/dL (0.2-1) 01/03/20 09:45 AST 11 U/L (15-37) L 01/03/20 09:45 ALT 11 U/L (13-61) L 01/03/20 09:45 Alkaline Phosphatase 57 U/L (45-117) 01/03/20 09:45 Total Protein 6.8 g/dl (6.4-8.2) 01/03/20 09:45 Albumin 3.7 g/dl (3.4-5.0) 01/03/20 09:45 Syphilis Serology Non-reactive (NONREACTIVE) 01/03/20 09:45 HIV Ag/Ab Combo Qual Negative (NEGATIVE) 01/03/20 09:45 Labs noted. Assessment: 01/04/20 10:45 Alert and oriented x3, in no acute respiratory distress. Full ROM, ambulating in the unit. Skin warm to touch without. Withdrawal symptoms. Plan: Continue detox protocol.
[2020-01-04] MEDS: MELATONIN 5 MG TABLETS PO SCH (22:07)
[2020-01-04] MEDS: THIAMINE HCL 100 MG TABLET (FP) PO SCH (22:07)
[2020-01-05] MEDS: chlordiazePOXIDE HCL 25 MG CAPSULE PO SCH ×3 (06:05→17:36)
[2020-01-05] MEDS ORDERED: METHADONE HCL 10 MG TABLET (FOR DETOX USE ONLY) PO ONE (10:00)
[2020-01-05] MEDS: PRENATAL VITAMINS W/ FOLIC ACID TABLET (FP) PO SCH (10:17)
[2020-01-05] MEDS: NICOTINE 7 MG/24 HOURS TOPICAL PATCH TD SCH (10:17)
--- NOTE | 2020-01-05 10:28 | PN ---
[facility] CIWA - CIWA Score Nausea/Vomitin-No Nausea/No Vomiting Muscle Tremors: None Anxiety: 2 Agitation: 0-Normal Activity Paroxysmal Sweats: 1-Minimal Palms Moist Orientation: 0-Oriented Tacttile Disturbances: 0-None Auditory Disturbances: 0-None Visual Disturbances: 0-None Headache: 0-None Present CIWA-Ar Total Score: 3 S COWS - Scale Resting Pulse: 0= [place] 80 or Below Sweatin= Chills/Flushing Restless Observation: 0= Sits Still Pupil Size: 0= Normal to Room Light Bone or Joint Aches: 2= Severe Diffuse Aches Runny Nose/ Eye Tearin= Nasal Congestion GI Upset > 30mins: 0= None Tremor Observation of Outstretched Hands: 0= None Yawning Observation: 0= None Anxiety or Irritability: 2=Irritable/Anxious Goose Flesh Skin: 0=Smooth Skin COWS Score: 6 S Progress Note (SOAP) Subjective: Complaints of nasal stuffiness, sweats, chills and anxiety. Objective: 01/05/20 10:23 Alert and oriented x3, in no acute respiratory distress. Full ROM, ambulatory on the unit without assistance. Skin warm to touch without any lesions. Vital Signs 01/05/20 01/05/20 06:02 09:23 Temperature 96.9 F L 98.2 F Pulse Rate 68 78 Respiratory 20 18 Rate Blood Pressure 97/54 L 104/63 O2 Sat by Pulse 96 98 Oximetry (%) Laboratory Last Values WBC 5.3 K/mm3 (4.0-10.0) 01/03/20 09:45 RBC 4.74 M/mm3 (3.60-5.2) 01/03/20 09:45 Hgb 13.9 GM/dL (10.7-15.3) 01/03/20 09:45 Hct 40.3 % (32.4-45.2) 01/03/20 09:45 MCV 85.1 fl (80-96) 01/03/20 09:45 MCH 29.2 pg (25.7-33.7) 01/03/20 09:45 MCHC 34.3 g/dl (32.0-36.0) 01/03/20 09:45 RDW 13.4 % (11.6-15.6) 01/03/20 09:45 Plt Count 246 K/MM3 (134-434) 01/03/20 09:45 MPV 8.7 fl (7.5-11.1) 01/03/20 09:45 Sodium 138 mmol/L (136-145) 01/03/20 09:45 Potassium 3.8 mmol/L (3.5-5.1) 01/03/20 09:45 Chloride 102 mmol/L (98-107) 01/03/20 09:45 Carbon Dioxide 31 mmol/L (21-32) 01/03/20 09:45 Anion Gap 5 MMOL/L (8-16) L 01/03/20 09:45 BUN 6.2 mg/dL (7-18) L 01/03/20 09:45 Creatinine 0.7 mg/dL (0.55-1.3) 01/03/20 09:45 Est GFR (CKD-EPI)AfAm 139.57 01/03/20 09:45 Est GFR (CKD-EPI)NonAf 120.42 01/03/20 09:45 Random Glucose 89 mg/dL (74-106) 01/03/20 09:45 Calcium 9.5 mg/dL (8.5-10.1) 01/03/20 09:45 Total Bilirubin 0.7 mg/dL (0.2-1) 01/03/20 09:45 AST 11 U/L (15-37) L 01/03/20 09:45 ALT 11 U/L (13-61) L 01/03/20 09:45 Alkaline Phosphatase 57 U/L (45-117) 01/03/20 09:45 Total Protein 6.8 g/dl (6.4-8.2) 01/03/20 09:45 Albumin 3.7 g/dl (3.4-5.0) 01/03/20 09:45 Syphilis Serology Non-reactive (NONREACTIVE) 01/03/20 09:45 COVID-19 (ENMANUEL) Not detected (Not Detected) 01/03/20 10:30 HIV Ag/Ab Combo Qual Negative (NEGATIVE) 01/03/20 09:45 Labs noted. Assessment: 01/05/20 10:24 Withdrawal symptoms Plan: Continue detox protocol.
[2020-01-05 17:50] VITALS: BP 102/69; PULSE 78; TEMP 97.7
--- NOTE | 2020-01-05 19:56 | PN ---
[facility] Progress Note Note: patient had family emergency,mother is in the hospital,has to leave the high risks of relapsing,seizure,permanent disability explained, patient understood,signed release against medical advise,advise to call 911 if not feeling well
--- NOTE | 2020-01-05 19:57 | DS ---
[facility] Detox Discharge Summary Admission Date: 01/03/20 Discharge Date: 01/05/20 - History Present History: Alcohol Dependence, Cannabis Dependence, Cocaine Dependence, Opioid Dependence, Sedative Dependence Additional Comments: alert,oriented x 3 ambulation on the unit lung clear on auscultation bilaterally no abdominal pain no edema of legs patient signed release against medical advise,mother is sick in the hospital,the high risk of relapsing,seizure,permanent disability including explained,understood, advise to call 911 if not feeling well left the unit in good and stable condition total time spending 30 minutes patient has narcan and albuterol inhaler at home Pertinent Past History: asthma seizure hepatitis c - Physical Exam Results Vital Signs: Vital Signs Temperature 97.7 F 01/05/20 16:33 Pulse Rate 78 01/05/20 16:33 Respiratory Rate 16 01/05/20 16:33 Blood Pressure 102/69 01/05/20 16:33 O2 Sat by Pulse Oximetry (%) 100 01/05/20 12:42 Pertinent Admission Physical Exam Findings: withdrawal signs and symptom Laboratory Last Values WBC 5.3 K/mm3 (4.0-10.0) 01/03/20 09:45 RBC 4.74 M/mm3 (3.60-5.2) 01/03/20 09:45 Hgb 13.9 GM/dL (10.7-15.3) 01/03/20 09:45 Hct 40.3 % (32.4-45.2) 01/03/20 09:45 MCV 85.1 fl (80-96) 01/03/20 09:45 MCH 29.2 pg (25.7-33.7) 01/03/20 09:45 MCHC 34.3 g/dl (32.0-36.0) 01/03/20 09:45 RDW 13.4 % (11.6-15.6) 01/03/20 09:45 Plt Count 246 K/MM3 (134-434) 01/03/20 09:45 MPV 8.7 fl (7.5-11.1) 01/03/20 09:45 Sodium 138 mmol/L (136-145) 01/03/20 09:45 Potassium 3.8 mmol/L (3.5-5.1) 01/03/20 09:45 Chloride 102 mmol/L (98-107) 01/03/20 09:45 Carbon Dioxide 31 mmol/L (21-32) 01/03/20 09:45 Anion Gap 5 MMOL/L (8-16) L 01/03/20 09:45 BUN 6.2 mg/dL (7-18) L 01/03/20 09:45 Creatinine 0.7 mg/dL (0.55-1.3) 01/03/20 09:45 Est GFR (CKD-EPI)AfAm 139.57 01/03/20 09:45 Est GFR (CKD-EPI)NonAf 120.42 01/03/20 09:45 Random Glucose 89 mg/dL (74-106) 01/03/20 09:45 Calcium 9.5 mg/dL (8.5-10.1) 01/03/20 09:45 Total Bilirubin 0.7 mg/dL (0.2-1) 01/03/20 09:45 AST 11 U/L (15-37) L 01/03/20 09:45 ALT 11 U/L (13-61) L 01/03/20 09:45 Alkaline Phosphatase 57 U/L (45-117) 01/03/20 09:45 Total Protein 6.8 g/dl (6.4-8.2) 01/03/20 09:45 Albumin 3.7 g/dl (3.4-5.0) 01/03/20 09:45 Syphilis Serology Non-reactive (NONREACTIVE) 01/03/20 09:45 COVID-19 ([facility]) Not detected (Not Detected) 01/03/20 10:30 HIV Ag/Ab Combo Qual Negative (NEGATIVE) 01/03/20 09:45 Vital Signs Temperature 97.7 F 01/05/20 16:33 Pulse Rate 78 01/05/20 16:33 Respiratory Rate 16 01/05/20 16:33 Blood Pressure 102/69 01/05/20 16:33 O2 Sat by Pulse Oximetry (%) 100 01/05/20 12:42 - Medication Discharge Medications: Ambulatory Orders Albuterol Sulfate Inhaler - [Ventolin Hfa Inhaler -] 2 inh PO Q4H PRN 01/03/20 - Diagnosis (1) Opioid dependence with withdrawal Current Visit: Yes Status: Acute (2) Cocaine dependence Current Visit: Yes Status: Acute (3) Cannabis dependence Current Visit: Yes Status: Acute (4) Uncomplicated sedative, hypnotic or anxiolytic withdrawal Current Visit: Yes Status: Acute (5) Hepatitis C Current Visit: Yes Status: Acute (6) Seizure Current Visit: Yes Status: Acute (7) Asthma Current Visit: No Status: Chronic Qualifiers: Asthma severity: unspecified severity Asthma persistence: unspecified Asthma complication type: unspecified Qualified Code(s): J45.909 - Unspecified asthma, uncomplicated - AMA Did Patient Leave Against Medical Advice: Yes
[2020-01-06] MEDS ORDERED: chlordiazePOXIDE HCL 10 MG CAPSULE PO PRN
[2020-01-06] MEDS ORDERED: chlordiazePOXIDE HCL 10 MG CAPSULE PO SCH (05:00)
[2020-01-06] MEDS ORDERED: METHADONE (DETOX) 10 MG, METHADONE (DETOX) 5 MG PO ONE (10:00)
[2020-01-07] MEDS ORDERED: chlordiazePOXIDE HCL 10 MG CAPSULE PO SCH (05:00)
[2020-01-07] MEDS ORDERED: METHADONE HCL 10 MG TABLET (FOR DETOX USE ONLY) PO ONE (10:00)
[2020-01-08] MEDS ORDERED: chlordiazePOXIDE HCL 10 MG CAPSULE PO ONE (05:00)
[2020-01-08] MEDS ORDERED: METHADONE HCL 5 MG TABLET (FOR DETOX USE ONLY) PO ONE (06:00)
== END 2020-01-05 20:32 | disposition left against medical advice (07) | DRG 770 ==
LOC: YASAS 08:49 → Y6N 09:48
PROVIDERS: ADMIT Allergy & Immunology; ATTEND Allergy & Immunology
PROC: HZ2ZZZZ Detoxification Services for Substance Abuse Treatment (ICD-10-PCS; principal; 2020-01-03)
DX: F10.230 Alcohol dependence with withdrawal, uncomplicated (principal); F11.23 Opioid dependence with withdrawal; F13.230 Sedative, hypnotic or anxiolytic dependence with withdrawal, uncomplicated; F14.20 Cocaine dependence, uncomplicated; F12.20 Cannabis dependence, uncomplicated; F17.210 Nicotine dependence, cigarettes, uncomplicated; J45.909 Unspecified asthma, uncomplicated; G40.909 Epilepsy, unspecified, not intractable, without status epilepticus; B18.2 Chronic viral hepatitis C; Z86.69 Personal history of other diseases of the nervous system and sense organs
CPT/HCPCS: 36415; 80053; 81025; 85027; 86780; 87389; C9803; U0003

== ENCOUNTER 2020-10-23 12:06 | Inpatient (IN) | payer OTHER ==
[2020-10-23] MEDS ORDERED: cloNIDine HCL 0.1 MG TABLET PO PRN (15:13)
[2020-10-23] MEDS ORDERED: clonazePAM 0.5 MG ODT TABLETS SL PRN (15:13)
[2020-10-23] MEDS ORDERED: IBUPROFEN 400 MG TABLET (FP) PO PRN (15:13)
[2020-10-23] MEDS ORDERED: METHOCARBAMOL 500 MG TABLET PO PRN (15:13)
[2020-10-23] MEDS ORDERED: methaDONE HCL 10 MG TABLET (FOR DETOX USE ONLY) PO ONE (15:13)
[2020-10-23] MEDS ORDERED: MAGNESIUM HYDROX 2400MG/30ML ORAL SUSPENSION 30 ML CUP PO PRN (15:13)
[2020-10-23] MEDS ORDERED: MAG HYDROX/AL HYDROX/SIMETH 30 ML UNIT-DOSE CUP PO PRN (15:13)
[2020-10-23] MEDS ORDERED: MAGNESIUM CITRATE 300 ML BOTTLE PO PRN (15:13)
[2020-10-23] MEDS ORDERED: ONDANSETRON *ODT* 4 MG TABLET SL PRN (15:13)
[2020-10-23] MEDS ORDERED: NICOTINE 10 MG CARTRIDGE (INHALER) IH PRN (15:13)
[2020-10-23] MEDS ORDERED: MENTHOL/PHENOL 1 EACH UD MM PRN (15:13)
[2020-10-23] MEDS ORDERED: ACETAMINOPHEN 325 MG TABLET (FP) PO PRN ×2 (15:13)
[2020-10-23] MEDS ORDERED: BISMUTH SUBSALICYLATE 524 MG/30 ML PO PRN (15:13)
[2020-10-23] MEDS ORDERED: ALBUTEROL SO4 HFA INHALER IH PRN (15:17)
[2020-10-23 18:20] VITALS: BMI 16.2
[2020-10-23] MEDS: hydrOXYzine PAMOATE 25 MG CAPSULE (FP) PO SCH ×2 (18:23→22:31)
[2020-10-23] MEDS: AMOXICILLIN 500 MG CAPSULE (FP) PO SCH (22:31)
[2020-10-23] MEDS: THIAMINE HCL 100 MG TABLET (FP) PO SCH (22:31)
[2020-10-23] MEDS: MELATONIN 5 MG TABLETS PO SCH (22:31)
[2020-10-23] MEDS: diazePAM 5 MG TABLET PO PRN (22:32)
[2020-10-24] MEDS: hydrOXYzine PAMOATE 25 MG CAPSULE (FP) PO SCH ×5 (05:56→23:25)
[2020-10-24] MEDS: AMOXICILLIN 500 MG CAPSULE (FP) PO SCH ×3 (05:56→21:21)
[2020-10-24] MEDS: diazePAM 5 MG TABLET PO PRN ×3 (05:58→21:20)
[2020-10-24] MEDS ORDERED: methaDONE HCL 10 MG TABLET (FOR DETOX USE ONLY) ONE (08:59)
[2020-10-24] MEDS: PRENATAL VITAMINS W/ FOLIC ACID TABLET (FP) PO SCH (10:14)
[2020-10-24 13:18] LABS: HEMATOCRIT 38.4 % (32.4-45.2); MCH 27.1 pg (25.7-33.7); MCHC 33.9 g/dl (32.0-36.0); MEAN CELL VOLUME 79.9 fl (80-96); MEAN PLT VOLUME 8.8 fl (7.5-11.1); PLATELET COUNT 203 10^3/uL (134-434); RDW 13.9 % (11.6-15.6); WHITE BLOOD COUNT 4.6 K/mm3 (4.0-10.0)
[2020-10-24 13:19] LABS: CALCIUM 8.6 mg/dL (8.5-10.1)
[2020-10-24 13:20] LABS: ALBUMIN 2.9 g/dl (3.4-5.0)
[2020-10-24 13:22] LABS: CREATININE 0.8 mg/dL (0.55-1.3)
[2020-10-24 13:24] LABS: BILIRUBIN,TOTAL 0.7 mg/dL (0.2-1); TOT PROT 6.5 g/dl (6.4-8.2)
[2020-10-24] MEDS: THIAMINE HCL 100 MG TABLET (FP) PO SCH (21:21)
[2020-10-24] MEDS: MELATONIN 5 MG TABLETS PO SCH (21:21)
[2020-10-25] MEDS: diazePAM 5 MG TABLET PO PRN ×4 (06:20→22:45)
[2020-10-25] MEDS: AMOXICILLIN 500 MG CAPSULE (FP) PO SCH ×2 (06:20→14:43)
[2020-10-25] MEDS: hydrOXYzine PAMOATE 25 MG CAPSULE (FP) PO SCH ×5 (06:20→22:45)
[2020-10-25] MEDS ORDERED: methaDONE HCL 10 MG TABLET (FOR DETOX USE ONLY) PO ONE (10:00)
[2020-10-25] MEDS: PRENATAL VITAMINS W/ FOLIC ACID TABLET (FP) PO SCH (10:19)
[2020-10-25] MEDS ORDERED: predniSONE 20 MG TABLET (UD) PO ONE (17:58)
[2020-10-25] MEDS ORDERED: NICOTINE POLACRILEX 2 MG GUM BUC PRN (18:10)
[2020-10-25] MEDS ORDERED: HYDROCORTISONE 1% TOPICAL LOTION 118 ML BOTTLE TP PRN (18:13)
[2020-10-25] MEDS: MELATONIN 5 MG TABLETS PO SCH (22:45)
[2020-10-25] MEDS: THIAMINE HCL 100 MG TABLET (FP) PO SCH (22:45)
[2020-10-26] MEDS: hydrOXYzine PAMOATE 25 MG CAPSULE (FP) PO SCH ×2 (06:20→09:41)
[2020-10-26] MEDS: diazePAM 5 MG TABLET PO PRN (06:22)
[2020-10-26 09:13] VITALS: BP 108/65; PULSE 75; TEMP 98.3
[2020-10-26] MEDS ORDERED: methaDONE HCL 10 MG TABLET (FOR DETOX USE ONLY) ONE (09:31)
[2020-10-26] MEDS: PRENATAL VITAMINS W/ FOLIC ACID TABLET (FP) PO SCH (09:40)
[2020-10-26] MEDS ORDERED: NICOTINE 14 MG/24 HOURS TOPICAL PATCH TD SCH (10:00)
[2020-10-26] MEDS ORDERED: predniSONE 20 MG TABLET (UD) PO ONE (10:00)
[2020-10-27] MEDS ORDERED: methaDONE HCL 10 MG TABLET (FOR DETOX USE ONLY) PO ONE (10:00)
[2020-10-27] MEDS ORDERED: predniSONE 20 MG TABLET (UD) PO ONE (18:03)
[2020-10-28] MEDS ORDERED: predniSONE 20 MG TABLET (UD) PO ONE (18:14)
== END 2020-10-26 12:42 | disposition left against medical advice (07) | DRG 770 ==
LOC: YASAS 12:06 → Y3N 16:31
PROVIDERS: ADMIT Allergy & Immunology; ATTEND Allergy & Immunology
PROC: HZ2ZZZZ Detoxification Services for Substance Abuse Treatment (ICD-10-PCS; principal; 2020-10-23)
DX: F11.23 Opioid dependence with withdrawal (principal); F14.20 Cocaine dependence, uncomplicated; F12.20 Cannabis dependence, uncomplicated; F17.210 Nicotine dependence, cigarettes, uncomplicated; J45.909 Unspecified asthma, uncomplicated; B18.2 Chronic viral hepatitis C; R76.11 Nonspecific reaction to tuberculin skin test without active tuberculosis; R46.0 Very low level of personal hygiene; R63.4 Abnormal weight loss; Z68.1 Body mass index [BMI] 19.9 or less, adult; Z91.89 Other specified personal risk factors, not elsewhere classified
CPT/HCPCS: 36415; 80053; 85027; 86780; C9803; U0003; U0005